=== PATIENT | female | born 1980 | race Caucasian/White ===

== ENCOUNTER 2024-03-18 19:39 | Emergency (ER) | payer MEDICAID, SELFPAY ==
[2024-03-18 19:43] VITALS: BP 118/72; PULSE 132; RESP 18; TEMP 36.8; O2SAT 94; BMI 22.3
--- NOTE | 2024-03-18 20:00 | XRR_ITS ---
PROCEDURE INFORMATION: Exam: XR Chest Exam date and time: 03/18/2024 8:54 PM Age: 43 years old Clinical indication: Shortness of breath; Additional info: Hypotension tachycardia TECHNIQUE: Imaging protocol: Radiologic exam of the chest. Views: 1 view. COMPARISON: No relevant prior studies available. FINDINGS: Lungs: Right basilar opacities. The left lung is clear. Pleural spaces: Moderate right-sided pleural effusion. Heart/Mediastinum: Unremarkable. No cardiomegaly. Bones/joints: Unremarkable. XR/XR chest 1V portable [id number] IMPRESSION: Moderate right-sided pleural effusion. Right basilar opacities likely represent atelectasis, though superimposed infection is not excluded.
--- NOTE | 2024-03-18 20:00 | ECG_ITS ---
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 Measurements Intervals [place] Rate: 130 P: 59 VT: 124 QRS: 84 QRSD: 87 T: -59 QT: 286 QTc: 422 Interpretive Statements SINUS TACHYCARDIA ST DEVIATION AND MODERATE T-WAVE ABNORMALITY, CONSIDER INFERIOR ISCHEMIA [-0.1+ mV T-WAVE IN II/aVF] No previous ECG available for comparison Electronically Signed On 03-19-2024 23:36:26 CDT by Miguel Juarez M.D. [email or web address] medical groupTB Biosciencesfair[facility].Vgift/store/NU/[id number] f
--- NOTE | 2024-03-18 20:01 | W.ED.DIZZY ---
HPI - Dizziness General: Chief Complaint: Dizziness Stated Complaint: Low BP Time Seen by Provider: 03/18/24 19:50 History of Present Illness: HPI Narrative: on midodrine keppra and lipitor rxs by Corin Whittington and Gloria Vaughn both [facility] Patient presents to the with complaints of low blood pressure all day long and dizziness. Patient says she has had chest pains off and on for last few days. And diarrhea all day today. She has when her blood pressure gets low it feels like she was going to pass out she has a ringing in her years. Patient did have a stroke a couple months ago and she has a little bit of gait disturbance and dysarthria still from it. Patient reports her blood pressure at home was 86/60 and 90/70. Patient is alert oriented x 3 and not having any chest pain or shortness of breath at this time. Patient denies any nausea vomiting coughs colds fevers chills pain burning frequent patient says she does take a medicine to takes it 3 times a day but it does not seem to be working. Related Data Previous Rx's Medication Instructions Recorded ciprofloxacin HCl 500 mg tablet 500 mg PO Q12H #20 tabs 03/18/24 Allergies Allergy/AdvReac Type Severity Reaction Status Date / Time No Known Allergies Allergy Verified 03/18/24 19:52 Review of Systems General: Reports: 10 or more systems reviewed and unremarkable except in HPI and below Physical Exam Const: COMMON NORMALS: no acute distress, average body habitus, patient oriented x3, no limitations, healthy appearing, alert and well nourished HENMT: COMMON NORMALS: normocephalic, atraumatic, hearing grossly normal bilaterally, external ears normal, Normal external nose present and moist oral mucous membranes HEAD & SCALP: normocephalic and atraumatic NOSE: Normal external nose present EXTERNAL EAR: Yes external ears normal Eye: COMMON NORMALS: Equal, round and reactive pupils present, EOMs intact bilaterally, conjunctivae normal and no scleral icterus CONJUNCTIVA: Yes conjunctivae normal PUPIL: Yes Equal, round and reactive pupils present Neck/C-Spine: COMMON NORMALS: full ROM, no lymphadenopathy, supple, no meningeal signs, no JVD and Thyroid normal THYROID: Thyroid normal Chest: COMMONS NORMALS: normal inspection of the chest and normal palpation of entire chest wall Resp: COMMON NORMALS: normal respiratory effort, No retractions and No use of accessory muscles; negative for clear to auscultation bilaterally (Clear to auscultation bilaterally, decreased breath sounds right lower lobe) AUSCULTATION: not clear to auscultation bilaterally (Clear to auscultation bilaterally, decreased breath sounds right lower lobe) Cardio: COMMON NORMALS: no JVD, regular rate, regular rhythm, S1 normal heart sound present, S2 normal heart sound present, No gallops present (Cardio), No clicks present (Cardio), No murmurs present (Cardio) and No rub (Cardio) RATE: regular rate RHYTHM: regular rhythm HEART SOUNDS: S1 normal heart sound present and S2 normal heart sound present GI: COMMON NORMALS: Normal to inspection, nondistended, normoactive bowel sounds present, Soft to palpation, non-tender, No hepatosplenomegaly present and no masses PALPATION: Yes Soft to palpation and Yes No hepatosplenomegaly present Neuro: COMMON NORMALS: patient oriented x3 SENSORIUM/ORIENTATION: Yes alert MENINGEAL SIGNS: Yes no meningeal signs Course Vital Signs: Vital signs: Vital Signs Temperature 98.2 F 03/18/24 19:43 Pulse Rate 122 H 03/18/24 22:30 Respiratory Rate 20 H 03/18/24 22:30 Blood Pressure 125/88 03/18/24 22:30 Pulse Oximetry 97 03/18/24 22:30 Oxygen Delivery Me thod Room Air 03/18/24 21:22 MDM - Dizziness Medical Decision Making Lab work was obtained which showed urinary tract infection, chest x-ray showed moderate right-sided pleural effusion, chest CTA showed right perihilar mass as well as multiple opacities concerning for metastasis. These results was discussed with the patient patient be placed on antibiotics and referred to pulmonology for probable biopsy. Medical Records I reviewed the patient's medical records. Lab Data I reviewed the patient's lab results. 03/18/24 20:20 03/18/24 20:20 Radiology Impressions Chest X-Ray 03/18/24 20:00 IMPRESSION: Moderate right-sided pleural effusion. Right basilar opacities likely represent atelectasis, though superimposed infection is not excluded. Chest CTA 03/18/24 21:57 IMPRESSION: 1. Right hilar/perihilar soft tissue mass appears to obstruct several right middle and right lower lobe bronchi, resulting in partial collapse/consolidation of the right lower lobe and a small area of consolidation in the right middle lobe. This mass also encases several right middle and right lower lobe pulmonary arteries and abuts portions of the esophagus as well as the right pulmonary artery. Findings are concerning for neoplasm. This could be further assessed with PET-CT. 2. Multiple nodular opacities within the aerated portion of the right lower lobe are concerning for metastases in the setting of possible right hilar neoplasm. However, underlying infection is also possible. Correlate with clinical findings. This could be further assessed at time of PET-CT. Alternatively, a follow-up CT chest is recommended after clinical treatment to evaluate for improvement. 3. Moderate right-sided pleural effusion. Laboratory Results WBC 9.04 10^3/uL (3.29-11.43) 03/18/24 20:20 RBC 4.68 10^6/uL (3.85-5.65) 03/18/24 20:20 Hgb 14.00 g/dL (11.27-16.99) 03/18/24 20:20 Hct 44.1 % (36-47) 03/18/24 20:20 MCV 94.2 fl (85-98) 03/18/24 20:20 MCH 29.9 pg (27-33) 03/18/24 20:20 MCHC 31.7 g/dL (30-55) 03/18/24 20:20 RDW 11.9 % (12.1-15.1) L 03/18/24 20:20 Plt Count 432 10^3/cmm (157-399) H 03/18/24 20:20 MPV 10.2 fL (7.4-10.4) 03/18/24 20:20 Neut % (Auto) 62.7 % 03/18/24 20:20 Lymph % (Auto) 26.1 % 03/18/24 20:20 [place] % (Auto) 6.4 % 03/18/24 20:20 Eos % (Auto) 3.7 % 03/18/24 20:20 Baso % (Auto) 0.8 % 03/18/24 20:20 Neut # (Auto) 5.67 10^3/uL (1.8-7.7) 03/18/24 20:20 Lymph # (Auto) 2.4 10^3/uL (0.8-4.8) 03/18/24 20:20 [place] # (Auto) 0.6 10^3/uL (0.2-0.9) 03/18/24 20:20 Eos # (Auto) 0.3 10^3/uL (0.0-0.8) 03/18/24 20:20 Baso # (Auto) 0.1 10^3/uL (0.0-0.1) 03/18/24 20:20 Nucleated RBC % (auto) 0 % 03/18/24 20:20 Nucleated RBCs # 0.0 /100WBC 03/18/24 20:20 Sodium 142 mmol/L (136-145) 03/18/24 20:20 Potassium 4.0 mmol/L (3.5-5.1) 03/18/24 20:20 Chloride 103 mmol/L (98-107) 03/18/24 20:20 Carbon Dioxide 24 mmol/L (22-29) 03/18/24 20:20 Anion Gap 19.0 (5-19) 03/18/24 20:20 BUN 15 mg/dL (6-20) 03/18/24 20:20 Creatinine 0.6 mg/dL (0.5-0.9) 03/18/24 20:20 GFR Calculation 108.1 mL/min (90-130) 03/18/24 20:20 Glucose 122 mg/dL (65-115) H 03/18/24 20:20 Calculated Osmolality 296 mOsm/kg (285-295) H 03/18/24 20:20 Lactic Acid 1.1 mmol/L (0.5-2.2) 03/18/24 20:20 Calcium 9.0 mg/dL (8.5-10.5) 03/18/24 20:20 Total Bilirubin 0.2 mg/dL (0.15-1.2) 03/18/24 20:20 AST 11 U/L (0-32) 03/18/24 20:20 ALT 8 U/L (0-33) 03/18/24 20:20 Alkaline Phosphatase 147 U/L (35-105) H 03/18/24 20:20 Troponin T Baseline 7 ng/L (0-10) 03/18/24 20:20 Troponin T 120 Minute 6.00 ng/L (0-10) 03/18/24 22:06 Delta Troponin T -1.00 ABS# (0-10) L 03/18/24 22:06 Total Protein 7.2 g/dL (6.6-8.7) 03/18/24 20:20 Albumin 3.9 g/dL (3.5-5.2) 03/18/24 20:20 Globulin 3.3 g/dL (1.3-4.6) 03/18/24 20:20 Procalcitonin 0.12 ng/mL (0-0.5) 03/18/24 20:20 HCG, Qual Negative (Negative) 03/18/24 21:10 Urine Color Yellow (Yellow) 03/18/24 21:10 Urine Appearance Cloudy (CLEAR) A 03/18/24 21:10 Urine pH 5.5 (5-7) 03/18/24 21:10 Ur Specific [place]ove 1.030 (1.005-1.030) 03/18/24 21:10 Urine Protein 1+ (Negative) A 03/18/24 21:10 Urine Glucose (UA) Negative (Normal) 03/18/24 21:10 Urine Ketones Negative (Negative) 03/18/24 21:10 Urine Blood 3+ (Negative) A 03/18/24 21:10 Urine Nitrate Positive (Negative) A 03/18/24 21:10 Urine Bilirubin Negative (Negative) 03/18/24 21:10 Urine Urobilinogen 1.0 mg/dL (Negative) 03/18/24 21:10 Ur Leukocyte Esterase 2+ (Negative) A 03/18/24 21:10 Urine RBC 11-20 /hpf (0-2) H 03/18/24 21:10 Urine WBC 25-40 /hpf (0-5) H 03/18/24 21:10 Ur Squamous Epith Cells 11-20 /hpf (0-5) 03/18/24 21:10 Amorphous Sediment Not Reportable 03/18/24 21:10 Urine Bacteria 4+ /hpf (NONE) H 03/18/24 21:10 Urine Mucus 2+ /hpf 03/18/24 21:10 Urine Opiates Screen Negative ng/mL (Negative) 03/18/24 21:10 Ur Barbiturates Screen Negative ng/mL (Negative) 10/01/24 21:10 Ur Phencyclidine Scrn Negative ng/mL (Negative) 03/18/24 21:10 Ur Amphetamines Screen Negative ng/mL (Negative) 03/18/24 21:10 U Benzodiazepines Scrn Negative ng/mL (Negative) 03/18/24 21:10 Urine Cocaine Screen Negative ng/mL (Negative) 03/18/24 21:10 U Marijuana (THC) Screen Positive ng/mL (Negative) H 03/18/24 21:10 All radiology interpretation(s) finalized by discharge Discharge Plan Discharge Patient Disposition: Home Clinical Impression: Pleural effusion, Mass of middle lobe of right lung Urinary tract infection Qualifiers: Urinary tract infection type: acute cystitis Hematuria presence: with hematuria Qualified Code(s): N30.01 - Acute cystitis with hematuria Condition: Stable Prescriptions: New ciprofloxacin HCl 500 mg tablet 500 mg PO Q12H Qty: 20 0RF Discharge Orders: Discharge ED (Routine); Ordered 03/18/24 Ordered By: Hernandez Maria Referrals: Antonella Combs DO [Primary Care Provider] - 1 week Patient Instructions: Pleural Effusion (DC), Urinary Tract Infection - Women Activity Restrictions/Additional Instructions: Your evaluation in ER showed you have a pleural effusion or extra fluid in your lung, a probable lung mass in your right lung causing this fluid buildup, and a urinary tract infection. He had been referred to pulmonology for further evaluation of this lung mass, case management should be calling you in the morning this appointment. Antibiotics have been sent to your pharmacy please get them filled and take them as directed for your urinary tract infection. Thank you for choosing [facility] for your healthcare needs today. Please realize that you were seen in the emergency department and that we are providing you with an emergency medical screening exam and this may not be a complete and all exclusive of all testing and/or medical workup we may need to determine your element or severity of your illness. It is very important that you follow-up as instructed with your primary care provider or specialist for the additional evaluation and to discuss your medical treatment plan. You may return to the emergency department should you have concerns or if your condition changes or worsens in any way. Coding Level of Care Code ED Supervisor Machine Setter for John aBrrios
[2024-03-18 20:28] LABS: Basophils # 0.1 10^3/uL (0.0-0.1); Basophils % 0.8 %; Eosinophils # 0.3 10^3/uL (0.0-0.8); Eosinophils % 3.7 %; Hematocrit 44.1 % (36-47); Lymphocytes # 2.4 10^3/uL (0.8-4.8); Lymphocytes % 26.1 %; Mean Corpuscular HGB Conc 31.7 g/dL (30-55); Mean Corpuscular Hemoglobin 29.9 pg (27-33); Mean Corpuscular Volume 94.2 fl (85-98); Mean Platelet Volume 10.2 fL (7.4-10.4); Monocytes # 0.6 10^3/uL (0.2-0.9); Monocytes % 6.4 %; Neutrophils # 5.67 10^3/uL (1.8-7.7); Neutrophils % 62.7 %; Nucleated Red Blood Cells % 0 %; Platelet Count 432 10^3/cmm (157-399); Red Blood Count 4.68 10^6/uL (3.85-5.65); Red Cell Distribution Width 11.9 % (12.1-15.1); White Blood Count 9.04 10^3/uL (3.29-11.43)
[2024-03-18 20:48] VITALS: BP 103/82; PULSE 120; O2SAT 94
[2024-03-18 20:52] LABS: Troponin(5th) Baseline 7 ng/L (0-10)
[2024-03-18 20:57] LABS: Alanine Aminotransferase 8 U/L (0-33); Albumin Level 3.9 g/dL (3.5-5.2); Alkaline Phosphatase 147 U/L (35-105); Aspartate Amino Transferase 11 U/L (0-32); Blood Urea Nitrogen 15 mg/dL (6-20); Carbon Dioxide 24 mmol/L (22-29); Chloride 103 mmol/L (98-107); Creatinine Clr Calc Pharmacy 105.4363; Globulin 3.3 g/dL (1.3-4.6); Glomerular Filtration Rate 108.1 mL/min (90-130); Glucose 122 mg/dL (65-115); Osmolality Calculated 296 mOsm/kg (285-295); Sodium 142 mmol/L (136-145); Total Bilirubin 0.2 mg/dL (0.15-1.2); Total Protein 7.2 g/dL (6.6-8.7)
[2024-03-18] MEDS: sodium chloride 0.9% 1,000 ML 999 ML IV (20:58)
[2024-03-18 21:16] LABS: Bilirubin Urine Negative (Negative); Blood Urine 3+ (Negative); Glucose Urine UA Negative (Normal); HCG Qualitative Urine. Negative (Negative); Ketones Urine Negative (Negative); Leukocyte Esterase Urine 2+ (Negative); Nitrate Urine Positive (Negative); Protein Urine 1+ (Negative); Urine Appearance Cloudy (CLEAR); Urine Color Yellow (Yellow); pH Urine 5.5 (5-7)
[2024-03-18 21:22] VITALS: BP 117/93; PULSE 111; O2SAT 97
[2024-03-18 21:23] LABS: Amphetamines Screen Urine Negative (Negative); Barbiturates Screen Urine Negative (Negative); Benzodiazepines Screen Urine Negative (Negative); Cocaine Screen Urine Negative (Negative); Opiate Screen Urine Negative (Negative); PCP Screen Urine Negative (Negative); THC Screen Urine Positive (Negative)
[2024-03-18 21:26] LABS: Add Urine Culture? No; Add Urine Microscopic? YES; Bacteria Urine 4+ /hpf; Mucus Urine 2+ /hpf; UA Manual Slide Review YES; UA Slide Review UA Slide Review Perf; WBC Urine 25-40 /hpf (0-5)
[2024-03-18] MEDS: ciprofloxacin 500 mg Tablet PO (21:41)
--- NOTE | 2024-03-18 21:57 | CTR_ITS ---
PROCEDURE INFORMATION: Exam: CTA Chest With Contrast Exam date and time: 03/18/2024 10:04 PM Age: 43 years old Clinical indication: Dyspnea and shortness of breath; Additional info: R pleural effusion, hypotension, tachycardia, TECHNIQUE: Imaging protocol: Computed tomographic angiography of the chest with contrast. Exam focused on the arteries. 3D rendering (Not supervised by radiologist): MIP and/or 3D reconstructed images were created by the technologist. Radiation optimization: All CT scans at this facility use at least one of these dose optimization techniques: automated exposure control; mA and/or kV adjustment per patient size (includes targeted exams where dose is matched to clinical indication); or iterative reconstruction. Contrast material: OMNI 350; Contrast volume: 75 ml; Contrast route: INTRAVENOUS (IV); COMPARISON: CR (CHEST, ) 03/18/2024 8:54 PM RADIATION DOSE METRICS: Total DLP (mGy-cm): 188.55 FINDINGS: Pulmonary arteries: Normal. No pulmonary emboli. Aorta: Unremarkable. No aortic aneurysm. No aortic dissection. Lungs: Small mucous secretions within the right mainstem bronchus. Opacification of several right middle and large lower lobe bronchi secondary to a right hilar/perihilar mass. Partial collapse/consolidation of the right lower lobe. Small area of opacification of the right middle lobe. Multiple consolidative and ground-glass opacities as well as nodular opacities are seen in the right lower lobe. The largest nodule measures up to 1.5 cm (series 4, image 24). Pleural spaces: Moderate right-sided pleural effusion. Heart: Unremarkable. No cardiomegaly. No pericardial effusion. Lymph nodes: Right hilar/perihilar soft tissue density measures approximately 5.3 x 6.7 x 5.7 cm and encases several right middle and right lower lobe pulmonary arteries and bronchi. Portions of the mass also abut the esophagus in the right pulmonary artery. Bones/joints: Unremarkable. No acute fracture. Soft tissues: Unremarkable. CT/CT angio chest PE protcl 19703 IMPRESSION: 1. Right hilar/perihilar soft tissue mass appears to obstruct several right middle and right lower lobe bronchi, resulting in partial collapse/consolidation of the right lower lobe and a small area of consolidation in the right middle lobe. This mass also encases several right middle and right lower lobe pulmonary arteries and abuts portions of the esophagus as well as the right pulmonary artery. Findings are concerning for neoplasm. This could be further assessed with PET-CT. 2. Multiple nodular opacities within the aerated portion of the right lower lobe are concerning for metastases in the setting of possible right hilar neoplasm. However, underlying infection is also possible. Correlate with clinical findings. This could be further assessed at time of PET-CT. Alternatively, a follow-up CT chest is recommended after clinical treatment to evaluate for improvement. 3. Moderate right-sided pleural effusion.
--- NOTE | 2024-03-18 22:00 | ECG_ITS ---
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 Measurements Intervals [place] Rate: 112 P: 42 OR: 144 QRS: 76 QRSD: 89 T: -21 QT: 314 QTc: 430 Interpretive Statements SINUS TACHYCARDIA NONSPECIFIC T-WAVE ABNORMALITY No previous ECG available for comparison Electronically Signed On 03-19-2024 23:44:13 CDT by Miguel Juarez M.D. [email or web address] [facility] hospitalChroma [facility].[employer]/store/OM/[id number]
[2024-03-18] MEDS: iohexol 350 mg/mL 500 mL Btl (per mL) IV (22:22)
[2024-03-18 22:30] VITALS: BP 125/88; PULSE 122; RESP 20; O2SAT 97
[2024-03-18 22:30] LABS: Lactic Sepsis W/Reflex 1.1 mmol/L (0.5-2.2)
[2024-03-18 22:36] LABS: Procalcitonin 0.12 ng/mL (0-0.5)
[2024-03-18 23:35] VITALS: BP 119/84; PULSE 114; RESP 20; O2SAT 97
--- NOTE | 2024-03-20 08:20 | DCPLANNER ---
faxed packet to kristin banegas
== END 2024-03-18 23:43 | disposition home or self-care (01) ==
PROVIDERS: Emergency Provider Emergency Medicine; PCP Family Medicine
DX: J90 Pleural effusion, not elsewhere classified (principal); N30.01 Acute cystitis with hematuria; R91.8 Other nonspecific abnormal finding of lung field; I95.9 Hypotension, unspecified; Z79.899 Other long term (current) drug therapy; I69.322 Dysarthria following cerebral infarction; I69.398 Other sequelae of cerebral infarction; R26.89 Other abnormalities of gait and mobility
CPT/HCPCS: 36415; 71045; 71275; 80053; 80306; 81001; 81025; 83605; 84145; 84484; 85025; 93005; 96360; 96361; 99285; J7030

== ENCOUNTER 2024-04-30 07:59 | Day surgery (SDC) | payer MEDICAID, SELFPAY ==
[2024-04-30] VITALS (8 sets, daily range): BP systolic 89–108; BP diastolic 65–76; PULSE 107–133; RESP 8–20; TEMP 36.1–37; O2SAT 90–94; BMI 22.4
--- NOTE | 2024-04-30 08:08 | SC_ITS ---
WS: [id number] C ARM fluoroscopy for infusion port placement, 04/30/2024 Clinical Data: port placement Comparison: Portable chest, 03/18/2024 Findings: Dr. Colmenares inserted a right infusion port. SC/C-arm FL for CVA 18570 Impression: Insertion of right infusion catheter.
[2024-04-30] MEDS: sodium chloride 0.9% 1,000 ML 30 ML IV (08:40)
--- NOTE | 2024-04-30 08:59 | P.ANESASSM_ITS ---
Pre-Anesthetic Assessment Height/Weight: Height 5 ft 4 in Weight 131 lb Temp Pulse Resp BP Pulse Ox O2 Del Method 98.6 F 133 H 20 H 100/72 91 Room Air 04/30/24 08:10 04/30/24 08:10 04/30/24 08:10 04/30/24 08:10 04/30/24 08:10 04/30/24 08:10 Preop Diagnosis: Lung cancer Operation Date: 04/30/24 09:50 Proposed Procedures p Portacath Placement - 74284, C34.31(Not Applicable) - Neal Thomas MD Was Beta Nataliia taken within 24 hours: N/A Last intake: Intake Last Liquid Date 04/29/24 Last Liquid Time 19:00 Last Solid Date 04/29/24 Last Solid Time 19:00 Social Tobacco and No tobacco Still occasional smokes, previous heavy smoker Exam alert, oriented x 3 and regular rate & rhythm Decreased breath sounds bilaterally Airway Submandibular: within normal limits Cervical ROM: within normal limits Mallampati: Class III Dentition: full Comments: Comments: Denies any loose teeth Anesthetic Plan ASA status: 4 Anesthesia: MAC Other: No prior issues with anesthesia NPO since yesterday 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 Mass in cases the pulmonary arteries. Has been deemed inoperable Patient has had recurrent CVAs. Most recent in October 2023 with residual weakness on the right side. Only takes daily aspirin Chronic hypotension, BP 100/72 today. Patient currently tachycardic with heart rate 120s No home oxygen use, SpO2 89-90% preop Still occasionally smokes Labs reviewed acceptable for procedure Plan for MAC anesthetic Medications/Allergies Home Medications Medication Instructions Recorded Confirmed Last Taken Type atorvastatin 20 mg tablet 20 mg PO DAILY 04/22/24 04/30/24 04/29/24 History hydrocodone 7.5 mg-acetaminophen 1 tab PO Q6H PRN pain 30 days #60 04/22/24 04/30/24 04/29/24 Rx 325 mg tablet tabs levetiracetam 500 mg tablet 500 mg PO DAILY 04/22/24 04/30/24 2 Weeks Ago Hi story ~04/16/24 midodrine 2.5 mg tablet 2.5 mg PO DAILY 04/22/24 04/30/24 04/29/24 History ondansetron 8 mg disintegrating 8 mg PO DAILY 04/22/24 04/30/24 2 Weeks Ago History tablet ~04/16/24 aspirin 81 mg tablet,delayed 81 mg PO DAILY 04/24/24 04/30/24 04/29/24 History release prochlorperazine maleate 10 mg 10 mg PO Q4H PRN mild nausea #30 04/28/24 04/30/24 2 Weeks Ago Rx tablet (Compazine) tabs ~04/16/24 Allergies Allergy/AdvReac Type Severity Reaction Status Date / Time No Known Allergies Allergy Verified 04/30/24 08:15 [facility] Anesthesia Social History (Updated 04/24/24 @ 08:15 by ELIDIA Machado) Smoking and tobacco/nicotine status: former use of tobacco/nicotine Alcohol intake: never Data Anesthesia Cardiac Studies: No Data to Display
--- NOTE | 2024-04-30 10:11 | W.PM.OPSFHP ---
Same Day Surgery H&P Indication for Procedure/HPI DATE OF PROCEDURE: April 30, 2024 CHIEF COMPLAINT/INDICATIONFOR SURGICAL PROCEDURE: port placement PREOP DIAGNOSIS: Lung cancer PLANNED PROCEDURE: Operation Date: 04/30/24 09:50 Proposed Procedures p Portacath Placement - 70894, C34.31(Not Applicable) - Neal Thomas MD Medications/Allergies* Home Medications Medication Instructions Recorded Confirmed Type atorvastatin 20 mg tablet 20 mg PO DAILY 04/22/24 04/30/24 History levetiracetam 500 mg tablet 500 mg PO DAILY 04/22/24 04/30/24 History midodrine 2.5 mg tablet 2.5 mg PO DAILY 04/22/24 04/30/24 History ondansetron 8 mg disintegrating 8 mg PO DAILY 04/22/24 04/30/24 History tablet aspirin 81 mg tablet,delayed 81 mg PO DAILY 04/24/24 04/30/24 History release Allergies/Adverse Reactions Allergy/AdvReac Type Severity Reaction Status Date / Time No Known Allergies Allergy Verified 04/30/24 08:15 Current Medications: Generic Name Dose Route Start Last Admin Trade Name Freq PRN Reason Stop Dose Admin Sodium Chloride 1,000 mls @ 30 mls/hr 04/30/24 08:15 04/30/24 08:40 Sodium Chloride 0.9% IV 05/01/24 08:14 30 mls/hr .Q24H SUSI Administration Pertinent History/Comorbid Conditions* Social History Smoking and tobacco/nicotine status: former use of tobacco/nicotine Alcohol intake: never Pertinent Exam Findings alert, oriented x 3, clear to auscultation bilaterally, regular rate & rhythm and procedure specific exam findings Chest without any gross abnormalities. Recommendations Surgery/Procedure today Other Plans: Proceed with port placement Coding Level of Care Code Acute Code for Chg Fwd
[2024-04-30] MEDS: ceFAZolin 2,000 mg SDV 2000 MG IVP (10:17)
[2024-04-30] MEDS: lidocaine-epi 1% 20 mL INJ 10 ML INJECTION (10:41)
[2024-04-30] MEDS: BUPivacaine 0.25% INJ 10 mL INJECTION (10:41)
[2024-04-30] MEDS: heparin, porcine 1,000 unit/mL INJ 10 mL 6000 UNIT IRRIGATION (10:42)
--- NOTE | 2024-04-30 11:17 | P.OP_ITS ---
Operative Report Date of procedure: April 30, 2024 Pre-op diagnosis: Lung cancer Post-op diagnosis: same Post-op findings: Port placement right IJ. Tip of catheter at atriocaval junction confirmed by intraoperative fluoroscopy Procedure done: Port placement Implants: Portacath Specimens removed/disposition: NA Pathology: none sent Surgeon: Neal Thoams MD Trade Union Secretary: JC Anesthesia: MAC Estimated blood loss (mL): 10 Complications: NA Findings: Confirmed tip of catheter is located at atriocaval junction using intraoperative fluoroscopy. Tested port intraoperatively and it is fully functional. Condition: stable Disposition: same day Brief History: 43-year-old female who presented for port placement. Needs chemotherapy for lung cancer. Discussed risks and benefits and patient agreed to proceed with port placement. Procedure: Patient was brought into the operating room and a timeout was carried out. Procedure was done under MAC. Patient was placed supine with the arms tucked and in Trendelenburg. Patient was prepped and draped in the usual sterile fashion. Using ultrasound guidance the right internal jugular vein was accessed. A guidewire was then placed down to the atriocaval junction using fluoroscopy. The finder needle was removed and the guidewire was secured. I then turned my attention to creating a pocket over the right chest. Make sure to locally infiltrated using plain lidocaine and bupivacaine at the site of the pocket and throughout the tunnel site. I confirmed adequate hemostasis at the pocket. I then proceeded to place the port that was already preassembled and flushed with heparinized saline and the chest pocket. I tunneled the catheter from the chest to the neck at the site where I accessed the internal jugular vein. I measured and adjusted the length of the catheter so it would reach the atrial caval junction. At this point, I used a dilator to dilate the tract into the internal jugular vein using fluoroscopy. I removed the guidewire and proceeded to thread the central venous catheter through the introducer. In the process, I removed the sheath as a completely pushed the catheter into the internal jugular vein. I then confirmed adequate placement of the catheter by performing intraoperative interpretation of fluoroscopy. The tip of the catheter was confirmed to be placed in the atriocaval junction. There were no kinks noted throughout the trajectory of the catheter. I then proceeded to test the port and was satisfied with its functionality. I proceeded to flushed the catheter without any issues. I then hep-locked the port. Skin was closed using deep dermal 3-0 Vicryl, subcuticular 4-0 Monocryl, and Dermabond. Patient was then transferred to PACU without any complications.
--- NOTE | 2024-04-30 12:06 | ANE.PACU2 ---
Inpatient post-anesthesia follow up: Airway intact: Yes Vital signs: Temperature 97.7 F Pulse Rate 108 Respiratory Rate 18 Blood Pressure 108/76 Pulse Oximetry 94 Oxygen Delivery Me thod Room Air Oxygen Flow Rate Fraction of Inspir ed Oxygen Hydration adequate: Yes Nausea and vomiting: No Pain level: 1 Mental status: Baseline
[2024-04-30 13:25] LABS: OR HCG Qualitative Urine Negative (Negative)
== END 2024-04-30 12:06 | disposition home or self-care (01) ==
PROVIDERS: Student in an Organized Health Care Education/Training Program; PCP Family Medicine; Visit Provider Student in an Organized Health Care Education/Training Program
PROC: (CPT 36561; principal; 2024-04-30 09:40)
DX: C34.90 Malignant neoplasm of unspecified part of unspecified bronchus or lung (principal); Z87.891 Personal history of nicotine dependence; Z79.82 Long term (current) use of aspirin
CPT/HCPCS: 36561; 76000; 77001; 81025; C1788; J0690; J1644; J2250; J2704; J3010; J3490; J7030

== ENCOUNTER 2024-05-05 07:30 | Oncology outpatient (recurring) (ONCR) | payer MEDICAID, SELFPAY ==
[2024-04-22 10:24] LABS: Basophils % 0.5 %; Eosinophils # 0.1 10^3/uL (0.0-0.8); Eosinophils % 1.3 %; Hematocrit 42.3 % (36-47); Lymphocytes # 1.7 10^3/uL (0.8-4.8); Lymphocytes % 21.7 %; Mean Corpuscular HGB Conc 30.3 g/dL (30-55); Mean Corpuscular Hemoglobin 28.9 pg (27-33); Mean Corpuscular Volume 95.5 fl (85-98); Mean Platelet Volume 10.9 fL (7.4-10.4); Monocytes # 0.3 10^3/uL (0.2-0.9); Monocytes % 4.4 %; Nucleated Red Blood Cells % 0 %; Platelet Count 301 10^3/cmm (157-399); Red Blood Count 4.43 10^6/uL (3.85-5.65); White Blood Count 7.65 10^3/uL (3.29-11.43)
[2024-04-22 10:42] LABS: Carcinoembryonic Antigen 2.9 ng/mL (0.0-4.7)
[2024-04-22 10:54] LABS: Alanine Aminotransferase 9 U/L (0-33); Albumin Level 3.7 g/dL (3.5-5.2); Alkaline Phosphatase 132 U/L (35-105); Anion Gap 15.8 (5-19); Aspartate Amino Transferase 19 U/L (0-32); Blood Urea Nitrogen 10 mg/dL (6-20); Calcium 8.8 mg/dL (8.5-10.5); Carbon Dioxide 26 mmol/L (22-29); Chloride 102 mmol/L (98-107); Creatinine Clr Calc Pharmacy 126.5236; Globulin 3.1 g/dL (1.3-4.6); Glomerular Filtration Rate 133.4 mL/min (90-130); Glucose 152 mg/dL (65-115); Lactate Dehydrogenase 122 U/L (135-214); Magnesium 1.8 mg/dL (1.7-2.3); Osmolality Calculated 292 mOsm/kg (285-295); Potassium 3.8 mmol/L (3.5-5.1); Sodium 140 mmol/L (136-145); Total Bilirubin 0.4 mg/dL (0.15-1.2); Total Protein 6.8 g/dL (6.6-8.7)
[2024-05-05 07:46] LABS: Basophils % 0.4 %; Eosinophils # 0.1 10^3/uL (0.0-0.8); Eosinophils % 0.9 %; Hematocrit 47.9 % (36-47); Lymphocytes # 2.1 10^3/uL (0.8-4.8); Lymphocytes % 23.3 %; Mean Corpuscular HGB Conc 27.3 g/dL (30-55); Mean Corpuscular Hemoglobin 30.4 pg (27-33); Mean Corpuscular Volume 111.1 fl (85-98); Mean Platelet Volume 10.8 fL (7.4-10.4); Monocytes # 0.6 10^3/uL (0.2-0.9); Monocytes % 6.3 %; Neutrophils # 6.25 10^3/uL (1.8-7.7); Neutrophils % 68.9 %; Nucleated Red Blood Cells % 0 %; Platelet Count 221 10^3/cmm (157-399); Red Blood Count 4.31 10^6/uL (3.85-5.65); Red Cell Distribution Width 13.8 % (12.1-15.1); White Blood Count 9.08 10^3/uL (3.29-11.43)
[2024-05-05 08:15] LABS: Alanine Aminotransferase 26 U/L (0-33); Albumin Level 3.8 g/dL (3.5-5.2); Alkaline Phosphatase 232 U/L (35-105); Anion Gap 16.9 (5-19); Aspartate Amino Transferase 36 U/L (0-32); Blood Urea Nitrogen 16 mg/dL (6-20); Calcium 9.4 mg/dL (8.5-10.5); Carbon Dioxide 27 mmol/L (22-29); Chloride 98 mmol/L (98-107); Creatinine Clr Calc Pharmacy 104.4187; Globulin 3.6 g/dL (1.3-4.6); Glomerular Filtration Rate 108.1 mL/min (90-130); Glucose 134 mg/dL (65-115); Osmolality Calculated 289 mOsm/kg (285-295); Potassium 3.9 mmol/L (3.5-5.1); Sodium 138 mmol/L (136-145); Thyroid Stimulating Hormone 1.61 uIU/mL (0.27-4.20); Total Bilirubin 0.6 mg/dL (0.15-1.2); Total Protein 7.4 g/dL (6.6-8.7)
[2024-05-05 08:42] LABS: Hepatitis A Antibody IgM Non-Reactive (Nonreactive); Hepatitis B Core AB, Total Non-Reactive (Nonreactive); Hepatitis B Surface AB < 3.5 (11.5-1000); Hepatitis B Surface Antigen Non-Reactive (Nonreactive); Hepatitis C Virus Antibody Non-Reactive (Nonreactive)
[2024-05-05] MEDS: sodium chloride 0.9% 250 ML 75 ML IV (11:47)
[2024-05-05] MEDS: OLANZapine 5 mg TABLET PO (11:48)
[2024-05-05] MEDS: acetaminophen 325 mg Tablet 650 MG PO (11:49)
[2024-05-05] MEDS: ondansetron 2 mg/ML SDV 2 mL 8 MG IVP (11:52)
[2024-05-05] MEDS: famotidine 20 mg/2 mL INJ IVP (11:55)
[2024-05-05] MEDS: diphenhydrAMINE 50 mg/mL SDV 1mL 25 MG IVP (11:59)
[2024-05-05] MEDS: aprepitant 130 mg/18 ml SDV IVP (12:03)
[2024-05-05] MEDS: dexamethasone 4 mg/mL INJ 5 mL 12 MG IV (12:07)
[2024-05-05] MEDS: atezolizumab 1,200 MG in sodium chloride 0.9% 250 ML 300 MG IV (13:18)
[2024-05-05] MEDS: CARBOPLATIN IV (14:32)
[2024-05-05] MEDS: SODIUM CHLORIDE 0.9% IV (14:32)
[2024-05-05] MEDS: [UNRECOGNIZED DRUG - REMARK] 508 MG IV (15:39)
[2024-05-05 16:56] VITALS: BP 101/67; PULSE 119; RESP 16; TEMP 36.7; O2SAT 90
== END 2024-05-05 23:59 | disposition home or self-care (01) ==
PROVIDERS: Nurse Practitioner Family; PCP Family Medicine; Visit Provider Internal Medicine Hematology & Oncology
DX: Z53.9 Procedure and treatment not carried out, unspecified reason (principal); Z51.12 Encounter for antineoplastic immunotherapy; Z51.11 Encounter for antineoplastic chemotherapy; C7A.8 Other malignant neuroendocrine tumors; C34.31 Malignant neoplasm of lower lobe, right bronchus or lung; Z79.52 Long term (current) use of systemic steroids; Z79.899 Other long term (current) drug therapy
CPT/HCPCS: 36415; 80053; 82378; 83615; 83735; 84443; 85025; 86705; 86706; 86709; 86803; 87340; 96375; 96413; 96417; J0185; J1100; J1200; J2405; J3490; J7030; J7040; J7050; J9022; J9045; J9181

== ENCOUNTER 2024-05-13 09:08 | Oncology outpatient (recurring) (ONCR) | payer MEDICAID, SELFPAY ==
[2024-05-06] MEDS: sodium chloride 0.9% 250 ML 75 ML IV (08:46)
[2024-05-06] MEDS: ondansetron 2 mg/ML SDV 2 mL 8 MG IVP (08:46)
[2024-05-06 08:57] VITALS: BP 108/69; PULSE 108; TEMP 36.9; O2SAT 91
[2024-05-06] MEDS: [UNRECOGNIZED DRUG - REMARK] 508 MG IV (09:20)
[2024-05-06 10:31] VITALS: BP 103/73; PULSE 107; RESP 15; TEMP 36; O2SAT 91
[2024-05-07 08:48] VITALS: BP 104/70; PULSE 100; RESP 16; TEMP 36.5; O2SAT 91
[2024-05-07] MEDS: palonosetron 0.25 mg/5 mL SDV IVP (08:54)
[2024-05-07] MEDS: [UNRECOGNIZED DRUG - REMARK] 508 MG IV (09:12)
[2024-05-07 10:33] VITALS: BP 114/73; PULSE 95; RESP 16; TEMP 36.6; O2SAT 90
[2024-05-13 09:42] LABS: Basophils % 0.6 %; Eosinophils % 0.6 %; Hematocrit 40.5 % (36-47); Lymphocytes # 0.9 10^3/uL (0.8-4.8); Lymphocytes % 26.5 %; Mean Corpuscular HGB Conc 31.1 g/dL (30-55); Mean Corpuscular Hemoglobin 28.7 pg (27-33); Mean Corpuscular Volume 92.3 fl (85-98); Mean Platelet Volume 10.3 fL (7.4-10.4); Monocytes % 0.6 %; Neutrophils # 2.34 10^3/uL (1.8-7.7); Neutrophils % 70.5 %; Nucleated Red Blood Cells % 0 %; Platelet Count 201 10^3/cmm (157-399); Red Blood Count 4.39 10^6/uL (3.85-5.65); Red Cell Distribution Width 12.9 % (12.1-15.1); White Blood Count 3.32 10^3/uL (3.29-11.43)
[2024-05-13 09:59] LABS: Alanine Aminotransferase 29 U/L (0-33); Albumin Level 4.2 g/dL (3.5-5.2); Alkaline Phosphatase 209 U/L (35-105); Anion Gap 16.4 (5-19); Aspartate Amino Transferase 29 U/L (0-32); Blood Urea Nitrogen 25 mg/dL (6-20); Calcium 9.5 mg/dL (8.5-10.5); Carbon Dioxide 27 mmol/L (22-29); Chloride 97 mmol/L (98-107); Creatinine Clr Calc Pharmacy 125.3025; Globulin 3.8 g/dL (1.3-4.6); Glomerular Filtration Rate 133.4 mL/min (90-130); Glucose 127 mg/dL (65-115); Osmolality Calculated 288 mOsm/kg (285-295); Potassium 4.4 mmol/L (3.5-5.1); Sodium 136 mmol/L (136-145); Total Bilirubin 0.6 mg/dL (0.15-1.2)
== END 2024-05-17 23:59 | disposition home or self-care (01) ==
PROVIDERS: Nurse Practitioner Family; PCP Family Medicine; Visit Provider Internal Medicine Hematology & Oncology
DX: Z53.9 Procedure and treatment not carried out, unspecified reason (principal); C34.31 Malignant neoplasm of lower lobe, right bronchus or lung
CPT/HCPCS: 36591; 80053; 85025; 96375; 96413; J2405; J2469; J7030; J7050; J9181

== ENCOUNTER 2024-05-28 08:00 | Oncology outpatient (recurring) (ONCR) | payer MEDICAID, SELFPAY ==
[2024-05-26 08:18] LABS: Basophils % 0.3 %; Eosinophils % 0.1 %; Hematocrit 36.8 % (36-47); Lymphocytes # 2.1 10^3/uL (0.8-4.8); Lymphocytes % 26.2 %; Mean Corpuscular Hemoglobin 29.7 pg (27-33); Mean Corpuscular Volume 95.8 fl (85-98); Mean Platelet Volume 9.7 fL (7.4-10.4); Monocytes # 0.7 10^3/uL (0.2-0.9); Monocytes % 8.4 %; Neutrophils # 5.14 10^3/uL (1.8-7.7); Neutrophils % 64.5 %; Nucleated Red Blood Cells % 0 %; Platelet Count 309 10^3/cmm (157-399); Red Blood Count 3.84 10^6/uL (3.85-5.65); Red Cell Distribution Width 13.3 % (12.1-15.1); White Blood Count 7.97 10^3/uL (3.29-11.43)
[2024-05-26 08:29] LABS: Alanine Aminotransferase 14 U/L (0-33); Albumin Level 3.9 g/dL (3.5-5.2); Alkaline Phosphatase 190 U/L (35-105); Anion Gap 13.6 (5-19); Aspartate Amino Transferase 24 U/L (0-32); Blood Urea Nitrogen 15 mg/dL (6-20); Calcium 9.6 mg/dL (8.5-10.5); Carbon Dioxide 29 mmol/L (22-29); Chloride 102 mmol/L (98-107); Creatinine Clr Calc Pharmacy 102.3843; Globulin 3.7 g/dL (1.3-4.6); Glomerular Filtration Rate 108.1 mL/min (90-130); Glucose 118 mg/dL (65-115); Magnesium 1.8 mg/dL (1.7-2.3); Osmolality Calculated 294 mOsm/kg (285-295); Potassium 3.6 mmol/L (3.5-5.1); Sodium 141 mmol/L (136-145); Thyroid Stimulating Hormone 0.87 uIU/mL (0.27-4.20); Total Bilirubin 0.2 mg/dL (0.15-1.2); Total Protein 7.6 g/dL (6.6-8.7)
[2024-05-26] MEDS: famotidine 20 mg/2 mL INJ IVP (09:37)
[2024-05-26] MEDS: sodium chloride 0.9% 250 ML 75 ML IV (09:37)
[2024-05-26] MEDS: acetaminophen 325 mg Tablet 650 MG PO (09:39)
[2024-05-26] MEDS: OLANZapine 5 mg TABLET PO (09:40)
[2024-05-26] MEDS: ondansetron 2 mg/ML SDV 2 mL 8 MG IVP (09:40)
[2024-05-26] MEDS: diphenhydrAMINE 50 mg/mL SDV 1mL 25 MG IVP (09:43)
[2024-05-26] MEDS: dexamethasone 4 mg/mL INJ 5 mL 12 MG IV (09:46)
[2024-05-26] MEDS: aprepitant 130 mg/18 ml SDV IVP (09:50)
[2024-05-26] MEDS: atezolizumab 1,200 MG in sodium chloride 0.9% 250 ML 540 MG IV (10:44)
[2024-05-26] MEDS: SODIUM CHLORIDE 0.9% IV (11:31)
[2024-05-26] MEDS: CARBOPLATIN IV (11:31)
[2024-05-26] MEDS: [UNRECOGNIZED DRUG - REMARK] 508 MG IV (12:39)
[2024-05-26 13:52] VITALS: BP 113/79; PULSE 120; TEMP 36.4
[2024-05-26] MEDS: ipratropium-albuterol 3 mL Neb INHALATION (14:06)
[2024-05-27 08:06] VITALS: BP 113/72; PULSE 125; RESP 17; TEMP 36.3; O2SAT 96
[2024-05-27] MEDS: ondansetron 2 mg/ML SDV 2 mL 8 MG IVP (08:23)
[2024-05-27] MEDS: [UNRECOGNIZED DRUG - REMARK] 508 MG IV (08:43)
[2024-05-27 09:49] VITALS: BP 121/73; PULSE 125; RESP 17; TEMP 37.1; O2SAT 96
[2024-05-27] MEDS: ipratropium-albuterol 3 mL Neb INHALATION (09:56)
[2024-05-27 10:07] VITALS: BP 116/79; PULSE 124; RESP 17; O2SAT 99
[2024-05-27] MEDS: sodium chloride 0.9% 250 ML 999 ML IV (10:07)
[2024-05-27] MEDS: diphenhydrAMINE 50 mg/mL SDV 1mL 12.5 MG IVP (10:11)
[2024-05-27 11:07] VITALS: BP 110/75; PULSE 119; RESP 16; TEMP 36.7; O2SAT 95
[2024-05-28 07:57] VITALS: BP 102/66; PULSE 117; RESP 15; TEMP 36.7; O2SAT 91
[2024-05-28] MEDS: sodium chloride 0.9% 250 ML 75 ML IV (08:18)
[2024-05-28] MEDS: palonosetron 0.25 mg/5 mL SDV IVP (08:18)
[2024-05-28] MEDS: [UNRECOGNIZED DRUG - REMARK] 508 MG IV (08:40)
[2024-05-28] MEDS: pegfilgrastim 6 mg/0.6 mL Kit (onpro) SUBCUT (09:54)
[2024-05-28 10:14] VITALS: BP 115/81; PULSE 120; RESP 18; O2SAT 93
== END 2024-05-28 23:59 | disposition home or self-care (01) ==
PROVIDERS: Nurse Practitioner Family; PCP Family Medicine; Visit Provider Internal Medicine Medical Oncology
DX: Z51.11 Encounter for antineoplastic chemotherapy; Z79.899 Other long term (current) drug therapy; Z53.9 Procedure and treatment not carried out, unspecified reason; C34.90 Malignant neoplasm of unspecified part of unspecified bronchus or lung
CPT/HCPCS: 80053; 83735; 84443; 85025; 96360; 96375; 96377; 96413; 96417; J0185; J1100; J1200; J2405; J2469; J2506; J3490; J7030; J7040; J7050; J9022; J9045; J9181

== ENCOUNTER 2024-06-17 08:00 | Oncology outpatient (recurring) (ONCR) | payer MEDICAID, SELFPAY ==
[2024-06-16 07:57] LABS: Basophils % 0.4 %; Eosinophils % 0.1 %; Hematocrit 33.7 % (36-47); Lymphocytes # 2.1 10^3/uL (0.8-4.8); Lymphocytes % 18.3 %; Mean Corpuscular HGB Conc 30.6 g/dL (30-55); Mean Corpuscular Hemoglobin 28.8 pg (27-33); Mean Corpuscular Volume 94.1 fl (85-98); Mean Platelet Volume 10.1 fL (7.4-10.4); Monocytes # 0.8 10^3/uL (0.2-0.9); Monocytes % 7.1 %; Neutrophils # 8.24 10^3/uL (1.8-7.7); Neutrophils % 73.2 %; Nucleated Red Blood Cells % 0 %; Platelet Count 256 10^3/cmm (157-399); Red Blood Count 3.58 10^6/uL (3.85-5.65); Red Cell Distribution Width 14.2 % (12.1-15.1); White Blood Count 11.25 10^3/uL (3.29-11.43)
[2024-06-16 08:15] LABS: Alanine Aminotransferase 22 U/L (0-33); Albumin Level 3.9 g/dL (3.5-5.2); Alkaline Phosphatase 277 U/L (35-105); Anion Gap 17.2 (5-19); Aspartate Amino Transferase 25 U/L (0-32); Blood Urea Nitrogen 15 mg/dL (6-20); Calcium 9.5 mg/dL (8.5-10.5); Carbon Dioxide 27 mmol/L (22-29); Chloride 98 mmol/L (98-107); Globulin 3.8 g/dL (1.3-4.6); Glomerular Filtration Rate 90.5 mL/min (90-130); Glucose 170 mg/dL (65-115); Osmolality Calculated 293 mOsm/kg (285-295); Potassium 3.2 mmol/L (3.5-5.1); Sodium 139 mmol/L (136-145); Total Bilirubin 0.3 mg/dL (0.15-1.2); Total Protein 7.7 g/dL (6.6-8.7)
[2024-06-16 09:24] LABS: Magnesium 1.7 mg/dL (1.7-2.3); Thyroid Stimulating Hormone 0.82 uIU/mL (0.27-4.20)
[2024-06-16] MEDS: acetaminophen 325 mg Tablet 650 MG PO (10:31)
[2024-06-16] MEDS: sodium chloride 0.9% 250 ML 75 ML IV (10:32)
[2024-06-16] MEDS: aprepitant 130 mg/18 ml SDV IVP (10:38)
[2024-06-16] MEDS: ondansetron 2 mg/ML SDV 2 mL 8 MG IVP (10:41)
[2024-06-16] MEDS: famotidine 20 mg/2 mL INJ IVP (10:43)
[2024-06-16] MEDS: dexamethasone 4 mg/mL INJ 5 mL 12 MG IV (10:44)
[2024-06-16] MEDS: diphenhydrAMINE 50 mg/mL SDV 1mL 25 MG IVP (10:46)
[2024-06-16] MEDS: OLANZapine 5 mg TABLET PO (10:52)
[2024-06-16] MEDS: atezolizumab 1,200 MG in sodium chloride 0.9% 250 ML 600 MG IV (12:11)
[2024-06-16] MEDS: SODIUM CHLORIDE 0.9% IV (13:20)
[2024-06-16] MEDS: CARBOPLATIN IV (13:20)
[2024-06-16] MEDS: [UNRECOGNIZED DRUG - REMARK] 508 MG IV (14:11)
[2024-06-16 17:11] VITALS: BP 95/65; PULSE 116; RESP 16; TEMP 36.9; O2SAT 93
[2024-06-17 08:05] VITALS: BP 98/56; PULSE 124; RESP 16; TEMP 36.4; O2SAT 91
[2024-06-17] MEDS: sodium chloride 0.9% 250 ML 75 ML IV (08:19)
[2024-06-17] MEDS: ondansetron 2 mg/ML SDV 2 mL 8 MG IVP (08:20)
[2024-06-17] MEDS: [UNRECOGNIZED DRUG - REMARK] 508 MG IV (08:58)
== END 2024-06-17 23:59 | disposition home or self-care (01) ==
PROVIDERS: Nurse Practitioner; PCP Family Medicine; Visit Provider Internal Medicine Medical Oncology
DX: Z51.11 Encounter for antineoplastic chemotherapy; C34.31 Malignant neoplasm of lower lobe, right bronchus or lung; Z53.9 Procedure and treatment not carried out, unspecified reason; Z79.634 Long term (current) use of topoisomerase inhibitor
CPT/HCPCS: 80053; 83735; 84443; 85025; 96375; 96413; 96417; J0185; J1100; J1200; J2405; J3490; J7030; J7040; J7050; J9022; J9045; J9181

== ENCOUNTER 2024-06-19 08:02 | Oncology outpatient (recurring) (ONCR) | payer MEDICAID, SELFPAY ==
[2024-06-19 08:19] VITALS: BP 103/70; PULSE 130; RESP 18; TEMP 37.9; O2SAT 89
[2024-06-19] MEDS: ertapenem 1,000 mg SDV 1000 MG IVP (09:01)
[2024-06-19] MEDS: sodium chloride 0.9% 250 ML 75 ML IV (09:01)
[2024-06-19] MEDS: palonosetron 0.25 mg/5 mL SDV IVP (09:08)
[2024-06-19] MEDS: [UNRECOGNIZED DRUG - REMARK] 508 MG IV (09:48)
[2024-06-19 11:25] VITALS: BP 87/54; PULSE 110; RESP 18; TEMP 37.2; O2SAT 91
== END 2024-07-18 23:59 | disposition home or self-care (01) ==
PROVIDERS: PCP Family Medicine; Visit Provider Internal Medicine Medical Oncology
DX: Z51.11 Encounter for antineoplastic chemotherapy (principal); C34.90 Malignant neoplasm of unspecified part of unspecified bronchus or lung; Z79.634 Long term (current) use of topoisomerase inhibitor
CPT/HCPCS: 96375; 96413; J1335; J2469; J7030; J7050; J9181

== ENCOUNTER 2024-06-19 20:48 | Inpatient (IN) | payer OTHER, MEDICAID, SELFPAY ==
[2024-06-19] VITALS (10 sets, daily range): BP systolic 92–112; BP diastolic 62–91; PULSE 115–139; RESP 14–20; TEMP 37.4; O2SAT 88–96; BMI 20.5
--- NOTE | 2024-06-19 20:52 | XRR_ITS ---
PROCEDURE INFORMATION: Exam: XR Chest Exam date and time: 06/19/2024 9:26 PM Age: 43 years old Clinical indication: Shortness of breath; Prior surgery; Surgery date: 1-6 months; Surgery type: Port a-cath; Patient HX: Stage 4 lung CA TECHNIQUE: Imaging protocol: Radiologic exam of the chest. Views: 1 view. COMPARISON: CT angio chest PE protcl [id number] 03/18/2024 10:04 PM FINDINGS: Tubes, catheters and devices: Right internal jugular infusion port tip is in the right atrium. Lungs: Volume loss in the right lung. Clear left lung. Pleural spaces: There is a right pleural effusion. Heart/Mediastinum: Mediastinal shift to the right side. Bones/joints: Unremarkable. XR/XR chest 1V portable [id number] IMPRESSION: Right pleural effusion with right lower lung volume loss and mediastinal shift to the right side.
--- NOTE | 2024-06-19 20:52 | ECG_ITS ---
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 Measurements Intervals [place] Rate: 139 P: 0 [place]: 0 QRS: 54 QRSD: 84 T: -42 QT: 329 QTc: 501 Interpretive Statements Sinus tachycardia ST DEVIATION AND MODERATE T-WAVE ABNORMALITY, CONSIDER ANTEROLATERAL ISCHEMIA [-0.1+ mV T-WAVE IN V3-V6] ST DEVIATION AND MODERATE T-WAVE ABNORMALITY, CONSIDER INFERIOR ISCHEMIA [-0.1+ mV T-WAVE IN II/aVF] Compared to ECG 03/18/2024 22:06:23 Possible ischemia now present T-wave abnormality still present Electronically Signed On 06-20-2024 21:41:52 SE[employer]TER by Miguel Juarez M.D. [email or web address]
--- NOTE | 2024-06-19 20:59 | ED_ITS ---
Documented by User: Love Gonzalez MD 06/19/24 21:38 HPI - SOB/Dyspnea 2 General: Chief Complaint: Shortness of Breath/Dyspnea Stated Complaint: SOB Time Seen by Provider: 06/19/24 20:52 History of Present Illness: HPI Narrative: 43-year-old female with a history of zeinab g cancer who received chemotherapy today who presents the emergency room with fever, cough, shortness of breath. She says this all started today. EMS reports that her oxygen sats were in the 80s on presentation on room air. She has a temp of 99.4 on presentation here. Still with some oxygen requirement. Some inspiratory chest pain. Weakness. No altered mental status. No focal motor deficits. Related Data Home Medications Medication Instructions Recorded Confirmed atorvastatin 20 mg tablet 20 mg PO DAILY 04/22/24 06/16/24 levetiracetam 500 mg tablet 500 mg PO DAILY 04/22/24 06/16/24 ondansetron 8 mg disintegrating 8 mg PO DAILY 04/22/24 06/16/24 tablet aspirin 81 mg tablet,delayed 81 mg PO DAILY 04/24/24 06/16/24 release Previous Rx's Medication Instructions Recorded prochlorperazine maleate 10 mg 10 mg PO Q4H PRN mild nausea #30 04/28/24 tablet (Compazine) tabs olanzapine 5 mg tablet 5 mg PO QPM Breakthrough Nausea 05/05/24 and Vomitting #30 tabs diazepam 5 mg tablet (Valium) 5 mg PO BID PRN anxiety #60 tabs 05/26/24 hydrocodone 7.5 mg-acetaminophen 1 tab PO Q6H PRN pain 30 days #112 05/26/24 325 mg tablet tabs lidocaine-prilocaine 2.5 %-2.5 % 1 applic topical .COMPLEX #30 grams 06/16/24 topical cream midodrine 2.5 mg tablet 2.5 mg PO TID #90 tabs 06/17/24 levofloxacin 500 mg tablet 500 mg PO DAILY 10 days #10 tabs 06/19/24 Allergies Allergy/AdvReac Type Severity Reaction Status Date / Time No Known Allergies Allergy Verified 06/16/24 08:23 Review of Systems 2 Narrative: Constitutional symptoms: Negative except as documented in HPI. Skin symptoms: Negative except as documented in HPI. Eye symptoms: Negative except as documented in HPI. ENMT symptoms: Negative except as documented in HPI. Respiratory symptoms: Negative except as documented in HPI. Cardiovascular symptoms: Negative except as documented in HPI. Gastrointestinal symptoms: Negative except as documented in HPI. Genitourinary symptoms: Negative except as documented in HPI. Musculoskeletal symptoms: Negative except as documented in HPI. Neurologic symptoms: Negative except as documented in HPI. Psychiatric symptoms: Negative except as documented in HPI. Endocrine symptoms: Negative except as documented in HPI. PFSH ED 2 PFSH: Medical History Port-A-Cath in place Hypotension CVA (cerebral vascular accident) Social History Smoking and tobacco/nicotine status: former use of tobacco/nicotine Alcohol intake: never Physical Exam 2 Narrative: EXAM NARRATIVE: General: Alert, no acute distress. Skin: Warm, dry. Head: Normocephalic, atraumatic. Neck: Supple, trachea midline. Eye: Extraocular movements are intact. Ears, nose, mouth and throat: Oral mucosa moist. Cardiovascular: Tachycardic, Normal peripheral perfusion. Respiratory: coarse, scattered wheeze, mild increased wob. tachypnea, breath sounds are equal, Symmetrical chest wall expansion. Gastrointestinal: Soft, Nontender, Non distended, Normal bowel sounds. Musculoskeletal: Normal ROM, no deformity. Neurological: Alert and oriented to person, place, time, and situation, No focal neurological deficit observed. Psychiatric: Cooperative, appropriate mood & affect. Course 2 Vital Signs: Vital signs: Vital Signs Temperature 99.4 F 06/19/24 20:49 Pulse Rate 126 H 06/19/24 23:00 Respiratory Rate 14 06/19/24 22:15 Blood Pressure 108/75 06/19/24 22:57 Pulse Oximetry 93 06/19/24 23:00 Oxygen Delivery Me thod Nasal Cannula 06/19/24 21:55 Oxygen Flow Rate 2 06/19/24 21:55 MDM - SOB/Dyspnea Medical Decision Making Differential diagnosis for patient with shortness of breath includes but is not limited to and based on the above HPI, review of systems and physical exam: Pneumonia. Bronchitis. Asthma or COPD with acute exacerbation. Acute coronary syndrome / [place]. Pulmonary embolism. Anxiety. Congestive heart failure. Viral infections including influenza and Covid-19. Atrial fibrillation. Anxiety. Pleural effusion. Pneumothorax. Orders placed to evaluate differential diagnosis based on the above differential, HPI and physical exam Chest x-ray: Large right-sided pleural effusion/mass. This is known. Appears a bit worse from previous. Interval placement of a port. Atelectasis versus infiltrate above the mass/effusion. EKG: atrial fibrillation with rapid ventricular response, No ST-T changes, no ectopy, This was reviewed and interpreted by myself the ER physician at 2054. I have given meropenem and linezolid as she has been receiving chemotherapy and is likely immunocompromise. She has had fever oxygen requirements and is tachycardic so treating empirically for sepsis. First liter of fluids is ordered. Also with her being hypoxemic I have ordered Solu-Medrol, and 2 updrafts. Patient care transitioned to Dr. Thurman at shift change. Lab Data 06/19/24 22:26 06/19/24 20:33 Labs/Radiology: Radiology Impressions Chest X-Ray 06/19/24 20:52 IMPRESSION: Right pleural effusion with right lower lung volume loss and mediastinal shift to the right side. Chest CTA 06/19/24 22:21 IMPRESSION: 1. Decrease in the size of the right hilar mass encasing the right middle and right lower lobe bronchi with persistent postobstructive collapse of the right middle and right lower lobe. Moderate right pleural effusion. 2. No pulmonary embolism. 3. Small right pneumothorax. 4. Right upper lobe nodular infiltrates, likely infectious/inflammatory. ADDENDUM: 06/19/24 [id number] THIS REPORT CONTAINS FINDINGS THAT MAY BE CRITICAL TO PATIENT CARE. The findings were verbally communicated via telephone conference with ANTONI THURMAN at 11:31 PM INSURANCE APPRAISER on 06/19/2024. The findings were acknowledged and understood. Laboratory Results WBC 13.95 10^3/uL (3.29-11.43) H 06/19/24 22:26 Corrected WBC Cancelled 06/19/24 20:33 RBC 3.26 10^6/uL (3.85-5.65) L 06/19/24 22: Hgb 9.60 g/dL (11.27-16.99) L 06/19/24 22: Hct 29.9 % (36-47) L 06/19/24 22: MCV 91.7 fl (85-98) 06/19/24 22: MCH 29.4 pg (27-33) 06/19/24 22: MCHC 32.1 g/dL (30-55) 06/19/24 22: RDW 14.8 % (12.1-15.1) 06/19/24: Plt Count 431 10^3/cmm (157-399) H 06/19/24: MPV 10.1 fL (7.4-10.4) 06/19/24 22: Gran % Cancelled 06/19/24 20:33 Neut % (Auto) 88.6 % 06/19/24 22: Lymph % (Auto) 9.7 % 06/19/24: Mcdonough % (Auto) 0.6 % 06/19/24: Eos % (Auto) 0.0 % 06/19/24: Baso % (Auto) 0.2 % 06/19/24: Neut # (Auto) 12.36 10^3/uL (1.8-7.7) H 06/19/24 22: Lymph # (Auto) 1.4 10^3/uL (0.8-4.8) 06/19/24: Mcdonough # (Auto) 0.1 10^3/uL (0.2-0.9) L 06/19/24 22: Eos # (Auto) 0.0 10^3/uL (0.0-0.8) 06/19/24: Baso # (Auto) 0.0 10^3/uL (0.0-0.1) 06/19/24: Absolute Gran (auto) Cancelled 06/19/24 20:33 Nucleated RBC % (auto) 0 % 06/19/24: Nucleated RBCs # 0.0 /100WBC 06/19/24 22: Sodium 136 mmol/L (136-145) 06/19/24 20:33 Potassium 3.4 mmol/L (3.5-5.1) L 06/19/24 20:33 Chloride 94 mmol/L (98-107) L 06/19/24 20:33 Carbon Dioxide 25 mmol/L (22-29) 06/19/24 20:33 Anion Gap 20.4 (5-19) H 06/19/24 20:33 BUN 13 mg/dL (6-20) 06/19/24 20:33 Creatinine 0.6 mg/dL (0.5-0.9) 06/19/24 20:33 GFR Calculation 108.1 mL/min (90-130) 06/19/24 20:33 Glucose 124 mg/dL (65-115) H 06/19/24 20:33 Calculated Osmolality 284 mOsm/kg (285-295) L 06/19/24 20:33 Lactic Acid 1.4 mmol/L (0.5-2.2) 06/19/24 21:28 Calcium 9.5 mg/dL (8.5-10.5) 06/19/24 20:33 Total Bilirubin 0.5 mg/dL (0.15-1.2) 06/19/24 20:33 AST 30 U/L (0-32) 06/19/24 20:33 ALT 23 U/L (0-33) 06/19/24 20:33 Alkaline Phosphatase 291 U/L (35-105) H 06/19/24 20:33 Troponin T Baseline < 6 ng/L (0-10) 06/19/24 20:33 Troponin T 120 Minute 6.00 ng/L (0-10) 06/19/24 22:26 Delta Troponin T 0.59512 ABS# (0-10) 06/19/24 22:26 Total Protein 8.0 g/dL (6.6-8.7) 06/19/24 20:33 Albumin 3.9 g/dL (3.5-5.2) 06/19/24 20:33 Globulin 4.1 g/dL (1.3-4.6) 06/19/24 20:33 Procalcitonin 0.22 ng/mL (0-0.5) 06/19/24 20:33 Discharge Plan Discharge Patient Disposition: Admitted As Inpatient Admit Provider: Pauline Grace Clinical Impression: Hypokalemia Lung cancer Qualifiers: Laterality: right Lung location: lower lobe of lung Qualified Code(s): C34.31 - Malignant neoplasm of lower lobe, right bronchus or lung Hypotension Qualifiers: Hypotension type: hypotension due to hypovolemia Qualified Code(s): E86.1 - Hypovolemia Community acquired pneumonia Qualifiers: Laterality: right Lung location: unspecified part of lung Qualified Code(s): J 18.9 - Pneumonia, unspecified organism Atrial flutter Qualifiers: Atrial flutter type: unspecified Qualified Code(s): I48.92 - Unspecified atrial flutter Condition: Stable Coding Level of Care Code ED [employer] Product Fabricator for g Fwd Documented by User: Antoni Thurman DO 06/20/24 00:23 HPI - SOB/Dyspnea 2 General: Chief Complaint: Shortness of Breath/Dyspnea Stated Complaint: SOB Time Seen by Provider: 06/19/24 20:52 Related Data Home Medications Medication Instructions Recorded Confirmed atorvastatin 20 mg tablet 20 mg PO DAILY 04/22/24 06/16/24 levetiracetam 500 mg tablet 500 mg PO DAILY 04/22/24 06/16/24 ondansetron 8 mg disintegrating 8 mg PO DAILY 04/22/24 06/16/24 tablet aspirin 81 mg tablet,delayed 81 mg PO DAILY 04/24/24 06/16/24 release Previous Rx's Medication Instructions Recorded prochlorperazine maleate 10 mg 10 mg PO Q4H PRN mild nausea #30 04/28/24 tablet (Compazine) tabs olanzapine 5 mg tablet 5 mg PO QPM Breakthrough Nausea 05/05/24 and Vomitting #30 tabs diazepam 5 mg tablet (Valium) 5 mg PO BID PRN anxiety #60 tabs 05/26/24 hydrocodone 7.5 mg-acetaminophen 1 tab PO Q6H PRN pain 30 days #112 05/26/24 325 mg tablet tabs lidocaine-prilocaine 2.5 %-2.5 % 1 applic topical .COMPLEX #30 grams 06/16/24 topical cream midodrine 2.5 mg tablet 2.5 mg PO TID #90 tabs 06/17/24 levofloxacin 500 mg tablet 500 mg PO DAILY 10 days #10 tabs 06/19/24 Allergies Allergy/AdvReac Type Severity Reaction Status Date / Time No Known Allergies Allergy Verified 06/16/24 08:23 [facility] ED 2 [facility]: Medical History Port-A-Cath in place Hypotension CVA (cerebral vascular accident) Social History Smoking and tobacco/nicotine status: former use of tobacco/nicotine Alcohol intake: never Course 2 Vital Signs: Vital signs: Vital Signs Temperature 99.4 F 06/19/24 20:49 Pulse Rate 126 H 06/19/24 23:00 Respiratory Rate 14 06/19/24 22:15 Blood Pressure 108/75 06/19/24 22:57 Pulse Oximetry 93 06/19/24 23:00 Oxygen Delivery Me thod Nasal Cannula 06/19/24 21:55 Oxygen Flow Rate 2 06/19/24 21:55 MDM - SOB/Dyspnea Medical Decision Making Differential diagnosis for patient with shortness of breath includes but is not limited to and based on the above HPI, review of systems and physical exam: Pneumonia. Bronchitis. Asthma or COPD with acute exacerbation. Acute coronary syndrome / [place]. Pulmonary embolism. Anxiety. Congestive heart failure. Viral infections including influenza and Covid-19. Atrial fibrillation. Anxiety. Pleural effusion. Pneumothorax. Orders placed to evaluate differential diagnosis based on the above differential, HPI and physical exam Chest x-ray: Large right-sided pleural effusion/mass. This is known. Appears a bit worse from previous. Interval placement of a port. Atelectasis versus infiltrate above the mass/effusion. EKG: atrial fibrillation with rapid ventricular response, No ST-T changes, no ectopy, This was reviewed and interpreted by myself the ER physician at 2054. I have given meropenem and linezolid as she has been receiving chemotherapy and is likely immunocompromise. She has had fever oxygen requirements and is tachycardic so treating empirically for sepsis. First liter of fluids is ordered. Also with her being hypoxemic I have ordered Solu-Medrol, and 2 updrafts. Patient care transitioned to Dr. Thurman at shift change. Care assumed: Upon review of the patient's EKG it appears that she is currently in atrial flutter with an increased heart rate. Additionally her chest x-ray is abnormal. CTA chest demonstrated moderate right pleural effusion with small right pneumothorax and right upper lobe nodular infiltrates. Plan to treat this like community-acquired pneumonia. Patient has already received empiric antibiotics by off going physician. Secondary to history with cancer, weakness, O2 demand, and pneumothorax will plan for admission. Dr. Grace agreed to admission to stepdown unit. Diltiazem was ordered for a flutter and rate control, this medication was never given. The patient converted without this medication. Lab Data 06/19/24 22:26 06/19/24 20:33 Labs/Radiology: Radiology Impressions Chest X-Ray 06/19/24 20:52 IMPRESSION: Right pleural effusion with right lower lung volume loss and mediastinal shift to the right side. Chest CTA 06/19/24 22:21 IMPRESSION: 1. Decrease in the size of the right hilar mass encasing the right middle and right lower lobe bronchi with persistent postobstructive collapse of the right middle and right lower lobe. Moderate right pleural effusion. 2. No pulmonary embolism. 3. Small right pneumothorax. 4. Right upper lobe nodular infiltrates, likely infectious/inflammatory. ADDENDUM: 06/19/24 5313 THIS REPORT CONTAINS FINDINGS THAT MAY BE CRITICAL TO PATIENT CARE. The findings were verbally communicated via telephone conference with ANTONI THURMAN at 11:31 PM INSURANCE APPRAISER on 06/19/2024. The findings were acknowledged and understood. Laboratory Results WBC 13.95 10^3/uL (3.29-11.43) H 06/19/24 22: Corrected WBC Cancelled 06/19/24 20:33 RBC 3.26 10^6/uL (3.85-5.65) L 06/19/24 22: Hgb 9.60 g/dL (11.27-16.99) L 06/19/24 22: Hct 29.9 % (36-47) L 06/19/24 22: MCV 91.7 fl (85-98) 06/19/24 22: MCH 29.4 pg (27-33) 06/19/24 22: MCHC 32.1 g/dL (30-55) 06/19/24 22: RDW 14.8 % (12.1-15.1) 06/19/24 22: Plt Count 431 10^3/cmm (157-399) H 06/19/24 22: MPV 10.1 fL (7.4-10.4) 06/19/24 22:26 Gran % Cancelled 06/19/24 20:33 Neut % (Auto) 88.6 % 06/19/24 22: Lymph % (Auto) 9.7 % 06/19/24 22: Mcdonough % (Auto) 0.6 % 06/19/24 22: Eos % (Auto) 0.0 % 06/19/24 22: Baso % (Auto) 0.2 % 06/19/24 22: Neut # (Auto) 12.36 10^3/uL (1.8-7.7) H 06/19/24 22: Lymph # (Auto) 1.4 10^3/uL (0.8-4.8) 06/19/24 22: Mcdonough # (Auto) 0.1 10^3/uL (0.2-0.9) L 06/19/24 22: Eos # (Auto) 0.0 10^3/uL (0.0-0.8) 06/19/24 22: Baso # (Auto) 0.0 10^3/uL (0.0-0.1) 06/19/24 22: Absolute Gran (auto) Cancelled 06/19/24 20:33 Nucleated RBC % (auto) 0 % 06/19/24: Nucleated RBCs # 0.0 /100WBC 06/19/24 22: Sodium 136 mmol/L (136-145) 06/19/24 20:33 Potassium 3.4 mmol/L (3.5-5.1) L 06/19/24 20:33 Chloride 94 mmol/L (98-107) L 06/19/24 20:33 Carbon Dioxide 25 mmol/L (22-29) 06/19/24 20:33 Anion Gap 20.4 (5-19) H 06/19/24 20:33 BUN 13 mg/dL (6-20) 06/19/24 20:33 Creatinine 0.6 mg/dL (0.5-0.9) 06/19/24 20:33 GFR Calculation 108.1 mL/min (90-130) 06/19/24 20:33 Glucose 124 mg/dL (65-115) H 06/19/24 20:33 Calculated Osmolality 284 mOsm/kg (285-295) L 06/19/24 20:33 Lactic Acid 1.4 mmol/L (0.5-2.2) 06/19/24 21:28 Calcium 9.5 mg/dL (8.5-10.5) 06/19/24 20:33 Total Bilirubin 0.5 mg/dL (0.15-1.2) 06/19/24 20:33 AST 30 U/L (0-32) 06/19/24 20:33 ALT 23 U/L (0-33) 06/19/24 20:33 Alkaline Phosphatase 291 U/L (35-105) H 06/19/24 20:33 Troponin T Baseline < 6 ng/L (0-10) 06/19/24 20:33 Troponin T 120 Minute 6.00 ng/L (0-10) 06/19/24 22:26 Delta Troponin T 0.97633 ABS# (0-10) 06/19/24 22:26 Total Protein 8.0 g/dL (6.6-8.7) 06/19/24 20:33 Albumin 3.9 g/dL (3.5-5.2) 06/19/24 20:33 Globulin 4.1 g/dL (1.3-4.6) 06/19/24 20:33 Procalcitonin 0.22 ng/mL (0-0.5) 06/19/24 20:33 All radiology interpretation(s) finalized by discharge EKG Data EKG 2: Interpretation: Sinus tachycardia, normal axis, rate of 112, IL interval 161, QRS duration 91, QTc 413, no ST segment elevation or depression Discharge Plan Discharge Patient Disposition: Admitted As Inpatient Admit Provider: Pauline Grace Clinical Impression: Hypokalemia Lung cancer Qualifiers: Laterality: right Lung location: lower lobe of lung Qualified Code(s): C34.31 - Malignant neoplasm of lower lobe, right bronchus or lung Hypotension Qualifiers: Hypotension type: hypotension due to hypovolemia Qualified Code(s): E86.1 - Hypovolemia Community acquired pneumonia Qualifiers: Laterality: right Lung location: unspecified part of lung Qualified Code(s): J 18.9 - Pneumonia, unspecified organism Atrial flutter Qualifiers: Atrial flutter type: unspecified Qualified Code(s): I48.92 - Unspecified atrial flutter Condition: Stable Coding Level of Care Code ED [employer] for John Barrios
[2024-06-19] MEDS: sodium chloride 0.9% 1,000 ML 999 ML IV (21:33)
[2024-06-19] MEDS: ipratropium-albuterol 3 mL Neb INHALATION (21:55)
[2024-06-19 21:57] LABS: Alanine Aminotransferase 23 U/L (0-33); Albumin Level 3.9 g/dL (3.5-5.2); Alkaline Phosphatase 291 U/L (35-105); Anion Gap 20.4 (5-19); Aspartate Amino Transferase 30 U/L (0-32); Blood Urea Nitrogen 13 mg/dL (6-20); Calcium 9.5 mg/dL (8.5-10.5); Carbon Dioxide 25 mmol/L (22-29); Chloride 94 mmol/L (98-107); Creatinine Clr Calc Pharmacy 102.0448; Globulin 4.1 g/dL (1.3-4.6); Glomerular Filtration Rate 108.1 mL/min (90-130); Glucose 124 mg/dL (65-115); Osmolality Calculated 284 mOsm/kg (285-295); Potassium 3.4 mmol/L (3.5-5.1); Sodium 136 mmol/L (136-145); Total Bilirubin 0.5 mg/dL (0.15-1.2); Troponin(5th) Baseline < 6 ng/L (0-10)
[2024-06-19 22:00] LABS: Lactic Sepsis W/Reflex 1.4 mmol/L (0.5-2.2)
[2024-06-19] MEDS: methylPREDNISolone sod succ 125 mg/2 mL INJ IVP (22:13)
[2024-06-19] MEDS: acetaminophen 1,000 MG/100 ML PIGGYBACK 400 MG IV (22:14)
--- NOTE | 2024-06-19 22:21 | CTR_ITS ---
PROCEDURE INFORMATION: Exam: CTA Chest With Contrast Exam date and time: 06/19/2024 10:45 PM Age: 43 years old Clinical indication: Condition or disease; Other: Lung cancer; Shortness of breath; Additional info: Shortness of breath and known lung cancer, chest x-ray appears worse than previous. CT scan to help TECHNIQUE: Imaging protocol: Computed tomographic angiography of the chest with contrast. Exam focused on the arteries. 3D rendering (Not supervised by radiologist): MIP and/or 3D reconstructed images were created by the technologist. Radiation optimization: All CT scans at this facility use at least one of these dose optimization techniques: automated exposure control; mA and/or kV adjustment per patient size (includes targeted exams where dose is matched to clinical indication); or iterative reconstruction. Contrast material: OMNI 350; Contrast volume: 55 ml; Contrast route: INTRA-ARTERIAL (ARTERIAL); COMPARISON: CT angio chest PE protcl [id number] 03/18/2024 10:04 PM RADIATION DOSE METRICS: Total DLP (mGy-cm): 154.4 FINDINGS: Pulmonary arteries: Normal. No pulmonary emboli. Aorta: Unremarkable. No aortic aneurysm. No aortic dissection. Lungs: Right middle and right lower lobe collapse. Patchy nodular infiltrates in the right upper lobe. Pleural spaces: Moderate right pleural effusion. There is a small right pneumothorax right internal jugular infusion port. Heart: Unremarkable. No cardiomegaly. No pericardial effusion. Mediastinal space: Decrease in the size of the right hilar mass measuring 3.1 x 2.8 cm, previously 5.6 x 5.6 cm. Lymph nodes: Stable precarinal lymph node measuring 8 mm in short axis. Bones/joints: Mild curvature of the thoracic spine convex to the left. The thoracic spine demonstrates mild degenerative changes at multiple levels. Soft tissues: Unremarkable. CT/CT angio chest PE protcl [id number] IMPRESSION: 1. Decrease in the size of the right hilar mass encasing the right middle and right lower lobe bronchi with persistent postobstructive collapse of the right middle and right lower lobe. Moderate right pleural effusion. 2. No pulmonary embolism. 3. Small right pneumothorax. 4. Right upper lobe nodular infiltrates, likely infectious/inflammatory.
[2024-06-19] MEDS: iohexol 350 mg/mL 500 mL Btl (per mL) IV (22:49)
[2024-06-19 22:50] LABS: Troponin 5 2HR Delta 0.00001 ABS# (0-10)
--- NOTE | 2024-06-19 22:52 | ECG_ITS ---
[facility] Test Date: 2024-06-20 Pat Name: Lizeth Brandt Department: Room: 102 Gender: Female Customer Support Coordinator: : 1980 Requested By: Love Ferrera Order Number: [id number] Phillip MD: Miguel Juarez M.D. Measurements Intervals [place] Rate: 112 P: 41 IN: 161 QRS: 58 QRSD: 91 T: 15 QT: 347 QTc: 475 Interpretive Statements SINUS TACHYCARDIA NONSPECIFIC T-WAVE ABNORMALITY ABNORMAL RHYTHM ECG Compared to ECG 06/19/2024 20:53:35 Atrial flutter no longer present Possible ischemia no longer present T-wave abnormality still present Electronically Signed On 06-21-2024 21:39:04 RN CVICU by Miguel Juarez M.D. [email or web address]
[2024-06-19 23:13] LABS: Basophils % 0.2 %; Hematocrit 29.9 % (36-47); Lymphocytes # 1.4 10^3/uL (0.8-4.8); Lymphocytes % 9.7 %; Mean Corpuscular HGB Conc 32.1 g/dL (30-55); Mean Corpuscular Hemoglobin 29.4 pg (27-33); Mean Corpuscular Volume 91.7 fl (85-98); Mean Platelet Volume 10.1 fL (7.4-10.4); Monocytes # 0.1 10^3/uL (0.2-0.9); Monocytes % 0.6 %; Neutrophils # 12.36 10^3/uL (1.8-7.7); Neutrophils % 88.6 %; Nucleated Red Blood Cells % 0 %; Platelet Count 431 10^3/cmm (157-399); Red Blood Count 3.26 10^6/uL (3.85-5.65); Red Cell Distribution Width 14.8 % (12.1-15.1); White Blood Count 13.95 10^3/uL (3.29-11.43)
[2024-06-19] MEDS: meropenem 500 mg SDV IVP (23:13)
[2024-06-19] MEDS: linezolid premix 600 MG/300 ML PREMIX 300 MG IV (23:17)
--- NOTE | 2024-06-19 23:40 | P.HP_ITS ---
Providers/Chief Complaint 2 Primary Care Provider: Antonella Combs DO Chief Complaint: SOB History of Present Illness Lizeth Brandt is a 43 year old female small cell lung cancer, diagnosed on 04/01/24 by right thoracentesis with cytology showing a neuroendocrine neoplasm. Presented after chemotherapy today with chief complaint of fever, high heart rate, palpitations, shortness of breath and dry cough. 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 She has been giving meropenem and linezolid per Dr. Gonzalez At the time of my evaluation patient is on 2 L nasal cannula saturating well, afebrile, no signs of meningitis, awake and alert Patient takes midodrine, stating that her blood pressure always runs in 90s Review of Systems 2 Const: Reports: fever(s) and chills Eyes: Denies: change in vision ENMT: Denies: throat pain Card: Reports: palpitations Resp: Reports: dyspnea Musc: Reports: back pain Medications/Allergies Home Medications Medication Instructions Recorded Confirmed Last Taken Type atorvastatin 20 mg tablet 20 mg PO DAILY 04/22/24 06/16/24 04/29/24 History levetiracetam 500 mg tablet 500 mg PO DAILY 04/22/24 06/16/24 2 Weeks Ago History ~04/16/24 ondansetron 8 mg disintegrating 8 mg PO DAILY 04/22/24 06/16/24 2 Weeks Ago History tablet ~04/16/24 aspirin 81 mg tablet,delayed 81 mg PO DAILY 04/24/24 06/16/24 04/29/24 History release prochlorperazine maleate 10 mg 10 mg PO Q4H PRN mild nausea #30 04/28/24 06/16/24 2 Weeks Ago Rx tablet (Compazine) tabs ~04/16/24 olanzapine 5 mg tablet 5 mg PO QPM Breakthrough Nausea 05/05/24 06/16/24 Unknown Rx and Vomitting #30 tabs diazepam 5 mg tablet (Valium) 5 mg PO BID PRN anxiety #60 tabs 05/26/24 06/16/24 Unknown Rx hydrocodone 7.5 mg-acetaminophen 1 tab PO Q6H PRN pain 30 days #112 05/26/24 06/16/24 Unknown Rx 325 mg tablet tabs lidocaine-prilocaine 2.5 %-2.5 % 1 applic topical .COMPLEX #30 grams 06/16/24 06/16/24 Unknown Rx topical cream midodrine 2.5 mg tablet 2.5 mg PO TID #90 tabs 06/17/24 Unknown Rx levofloxacin 500 mg tablet 500 mg PO DAILY 10 days #10 tabs 06/19/24 Unknown Rx Allergies Allergy/AdvReac Type Severity Reaction Status Date / Time No Known Allergies Allergy Verified 06/16/24 08:23 PFSH Acute 2 PFSH: Medical History (Updated 06/20/24 @ 00:40 by Pauline Grace MD) Small cell lung cancer Port-A-Cath in place Hypotension CVA (cerebral vascular accident) Social History Smoking and tobacco/nicotine status: former use of tobacco/nicotine Alcohol intake: never Vitals/I&O/Wt Last Vital Signs Temp 99.4 F 06/19/24 20:49 Pulse 126 H 06/19/24 23:00 Resp 14 06/19/24 22:15 BP 108/75 06/19/24 22:57 Pulse Ox 93 06/19/24 23:00 O2 Del Method Nasal Cannula 06/19/24 21:55 O2 Flow Rate 2 06/19/24 21:55 06/19/24 06/19/24 06/20/24 14:59 22:59 06:59 Intake Total 100 / 100 Balance 100 / 100 Weight last 48 hrs Weight 54.431 kg Physical Exam 2 Narrative: Patient is awake and alert Currently in sinus rhythm heart rate around 110 GCS 15 Right-sided chronic weakness Patient has mild dysarthria No active focal neurodeficit Patient is stating she is at her baseline Does not walk on her own uses a walker Lower extremity no significant edema Clinically looks dehydrated Macerated malnourished sarcopenia Currently on 2 L nasal cannula S1, S2 tachycardia No active chest pain Port-A-Cath in place No signs of skin mottling, No signs of confusion Data 06/19/24 22:26 06/19/24 20:33 Micro: Microbiology 06/19/24 22:26 Blood Culture - Preliminary Blood SPECIMEN COLLECTED 06/19/24 21:28 Blood Culture - Preliminary Blood SPECIMEN COLLECTED A&P Assessment and plan (1) Lung cancer: Qualifiers: Laterality: right Lung location: lower lobe of lung Qualified Code(s): C34.31 - Malignant neoplasm of lower lobe, right bronchus or lung (2) Seizure disorder: (3) Community acquired pneumonia: Qualifiers: Laterality: right Lung location: unspecified part of lung Qualified Code(s): J18.9 - Pneumonia, unspecified organism (4) Port-A-Cath in place: (5) Hypotension: Qualifiers: Hypotension type: hypotension due to hypovolemia Qualified Code(s): E 86.1 - Hypovolemia (6) Atrial flutter: Qualifiers: Atrial flutter type: unspecified Qualified Code(s): I48.92 - Unspecified atrial flutter (7) Sepsis: (8) Pneumothorax: Plan Sepsis related to pneumonia Immunocompromise with underlying small cell lung cancer Chemotherapy today Patient received septic bolus Will keep her on vancomycin and cefepime for now Check MRSA nares Request urine culture Continue IV fluids Sepsis criteria met with tachypnea tachycardia fever at home, Small pneumothorax, repeat x-ray within 4 hours At this point no need of chest tube placement, Currently on 2 L of oxygen which is new Atrial flutter: Converted to sinus rhythm with IV fluid bolus, sepsis related atrial flutter? I would avoid putting her on anticoagulating agent full dose at this point in case her pneumothorax gets worse and she needs intervention, Hypotension: As per the patient she takes midodrine her blood pressure normally stays in 90s Never had any adrenal gland crisis/addisonian She has been giving steroids methylprednisolone 125 mg in the ER History of seizure: Brain MRI unremarkable for metastatic disease Lives at home, wheelchair dependent, lives with her father Full code GI soft diet DVT prophylaxis: Heparin Attestations 2 Medical Necessity Statement*: More than 2 midnights anticipated Diagnoses Malignant neoplasm of lower lobe of right lung C34.31 Laterality: right Lung location: lower lobe of lung Seizure disorder G40.909 Community acquired pneumonia J18.9 Laterality: right Lung location: unspecified part of lung Port-A-Cath in place Z95.828 Hypotension E86.1 Hypotension type: hypotension due to hypovolemia Atrial flutter I48.92 Atrial flutter type: unspecified Sepsis A41.9 Pneumothorax J93.9
[2024-06-20] VITALS (11 sets, daily range): BP systolic 86–107; BP diastolic 57–73; PULSE 85–111; RESP 12–22; TEMP 36.1–36.6; O2SAT 20–98; BMI 20.5
[2024-06-20 00:11] LABS: Procalcitonin 0.22 ng/mL (0-0.5)
[2024-06-20 01:08] LABS: Covid PCR NEGATIVE (Negative); Influenza A NEGATIVE (Negative); Influenza B NEGATIVE (Negative); Respiratory Syncytial Virus Ce NEGATIVE (Negative)
[2024-06-20 01:39] LABS: Thyroid Stimulating Hormone 0.71 uIU/mL (0.27-4.20)
[2024-06-20] MEDS: cefepime 2,000 mg SDV 2000 MG IVP ×2 (01:50→13:44)
[2024-06-20] MEDS: HYDROcodone-acetaminophen 7.5-325 mg Tablet 1 TAB PO ×3 (01:51→13:45)
[2024-06-20 02:21] LABS: Basophils % 0.2 %; Hematocrit 26.7 % (36-47); Lymphocytes # 0.3 10^3/uL (0.8-4.8); Lymphocytes % 2.3 %; Mean Corpuscular HGB Conc 31.1 g/dL (30-55); Mean Corpuscular Hemoglobin 29.3 pg (27-33); Mean Corpuscular Volume 94.3 fl (85-98); Mean Platelet Volume 9.6 fL (7.4-10.4); Monocytes % 0.2 %; Neutrophils # 11.71 10^3/uL (1.8-7.7); Neutrophils % 96.4 %; Nucleated Red Blood Cells % 0 %; Platelet Count 364 10^3/cmm (157-399); Red Blood Count 2.83 10^6/uL (3.85-5.65); Red Cell Distribution Width 14.6 % (12.1-15.1); White Blood Count 12.14 10^3/uL (3.29-11.43)
[2024-06-20 02:40] LABS: Troponin 5 6HR 9.88 ng/L (0-10); Troponin 5 6HR Delta 3.88001 ng/L (0-12)
[2024-06-20 02:41] LABS: Anion Gap 14.8 (5-19); Blood Urea Nitrogen 12 mg/dL (6-20); Calcium 8.2 mg/dL (8.5-10.5); Carbon Dioxide 24 mmol/L (22-29); Chloride 97 mmol/L (98-107); Creatinine Clr Calc Pharmacy 122.4538; Glomerular Filtration Rate 133.4 mL/min (90-130); Glucose 174 mg/dL (65-115); Magnesium 1.6 mg/dL (1.7-2.3); Osmolality Calculated 278 mOsm/kg (285-295); Phosphorus 3.3 mg/dL (2.5-4.5); Potassium 3.8 mmol/L (3.5-5.1); Sodium 132 mmol/L (136-145)
[2024-06-20 02:44] LABS: Slide Review Slide Review Perform
--- NOTE | 2024-06-20 03:15 | ECG_ITS ---
[facility] Date: 2024-[facility]-20 Pat Name: Lizeth Brandt Department: Room: 102 Gender: Female Staff Field Engineer: : 1980 Requested By: Love Ferrera Order Number: [id number] Phillip MD: Miguel Juarez M.D. Measurements Intervals [place] Rate: 92 P: 54 LA: 155 QRS: 65 QRSD: 92 T: 51 QT: 363 QTc: 450 Interpretive Statements SINUS RHYTHM Compared to ECG 06/20/2024 00:05:12 Sinus tachycardia no longer present T-wave abnormality no longer present Electronically Signed On 06-21-2024 21:39:09 SUSPECT ARTIST by Miguel Juarez M.D. [email or web address]
[2024-06-20 03:20] LABS: MRSA PCR OZH (swab) NOT DETECTED (Not Detecte)
[2024-06-20] MEDS: vancomycin 1,500 MG/300 ML PIGGYBACK 200 MG IV (03:43)
[2024-06-20] MEDS: levoFLOXacin 750 mg Tablet PO (05:36)
[2024-06-20] MEDS: heparin 5,000 unit/mL INJ 1 mL 5000 UNIT SUBCUT ×2 (05:36→17:57)
--- NOTE | 2024-06-20 07:00 | XRR_ITS ---
PROCEDURE INFORMATION: Exam: XR Chest Exam date and time: 06/20/2024 7:12 AM Age: 43 years old Clinical indication: Condition or disease; Lung condition and disease; Pneumothorax TECHNIQUE: Imaging protocol: Radiologic exam of the chest. Views: 1 view. COMPARISON: CT chest w con* [id number] 06/19/2024 10:45 PM FINDINGS: Tubes, catheters and devices: Infusion port enters from the right and terminates in the SVC. Lungs: See Pleural spaces finding. Pleural spaces: Moderate right pleural effusion with a micha atelectasis or infiltrate. The tiny pneumothorax visible on yesterday's CT is not clearly seen on today's study. Heart/Mediastinum: Unremarkable. No cardiomegaly. Bones/joints: Unremarkable. Other findings: No acute findings. XR/XR chest 1V portable [id number] IMPRESSION: Persistent effusion and atelectasis or infiltrate at the right lung base.
[2024-06-20] MEDS: midodrine 5 mg TABLET 2.5 MG PO ×3 (08:07→17:57)
[2024-06-20] MEDS: aspirin 81 mg EC Tablet PO (08:07)
[2024-06-20] MEDS: sennosides-docusate Tablet 1 TAB PO (08:07)
[2024-06-20] MEDS: diazePAM 5 mg Tablet PO ×2 (08:10→18:21)
--- NOTE | 2024-06-20 09:40 | PHA.VACGOAL ---
Vancomycin Goal - Goal Vancomycin Indication:: Other - Therapy Day of therpy:: Day []of [] . Actual body weight (kg): 120 lb 12.8 oz - Data Labs: WBC 12.14 10^3/uL (3.29-11.43) H 06/20/24 02:15 Corrected WBC Cancelled 06/19/24 20:33 RBC 2.83 10^6/uL (3.85-5.65) L 06/20/24 02:15 Hgb 8.30 g/dL (11.27-16.99) L 06/20/24 02:15 Hct 26.7 % (36-47) L 06/20/24 02:15 MCV 94.3 fl (85-98) 06/20/24 02:15 MCH 29.3 pg (27-33) 06/20/24 02:15 MCHC 31.1 g/dL (30-55) 06/20/24 02:15 RDW 14.6 % (12.1-15.1) 06/20/24 02:15 Sodium 132 mmol/L (136-145) L 06/20/24 02:15 Potassium 3.8 mmol/L (3.5-5.1) 06/20/24 02:15 Chloride 97 mmol/L (98-107) L 06/20/24 02:15 Carbon Dioxide 24 mmol/L (22-29) 06/20/24 02:15 Anion Gap 14.8 (5-19) 06/20/24 02:15 BUN 12 mg/dL (6-20) 06/20/24 02:15 Creatinine 0.5 mg/dL (0.5-0.9) 06/20/24 02:15 GFR Calculation 133.4 mL/min (90-130) H 06/20/24 02:15 Treatment plan:: new consult Regimen:: 1000 MG Q12H PER TELEPHARMACY 1500 MG FOR FIRST DOSE WAS GIVEN TROUGH 06/21 1400
[2024-06-20 09:52] LABS: ABG PCO2 39.1 mmHg (35-45); ABG PH Result 7.45 (7.35-7.45); Alveolar-Arterial Oxygen Gradi 12.3 mmHg (5-10); Arterial Blood Gas Hematocrit 30.9 % (37-47); Blood Gas Allen Test Pos; Blood Gas Operator Identificat BD; Blood Gas Sample Site Brachial, left; Blood Gas Sample Type Arterial; Carboxyhemoglobin 2.4 %THgb (0.4-20.1); HCO3 ABG 27.2 mmol/L (22-26); HGB O2 Sat 88.3 % (95-100); Ionized Calcium Level - ABG 1.2 mmol/L (1.1-1.4); Methemoglobin 1.1 % (0.4-1.5); Oxygen Device NC; Oxygen Saturation ABG 91.6; PO2 ABG 58.4 mmHg (80.0-100.0); PO2 FiO2 Ratio Arterial Blood 208; Total Hemoglobin 10.1 g/dL (12-16)
--- NOTE | 2024-06-20 10:47 | XRR_ITS ---
PROCEDURE INFORMATION: Exam: XR Chest Exam date and time: 06/20/2024 11:07 AM Age: 43 years old Clinical indication: Condition or disease; Lung condition and disease; Pneumothorax; Additional info: Ptx TECHNIQUE: Imaging protocol: Radiologic exam of the chest. Views: 1 view. COMPARISON: CR XR chest 1V portable [id number] 06/20/2024 7:12 AM FINDINGS: Tubes, catheters and devices: Stable infusion port. Unchanged effusion plus infiltrate on the right. Lungs: See Tubes, catheters and devices finding. Pleural spaces: The tiny pneumothorax visible on yesterday's CT is not seen on this study. Heart/Mediastinum: Unremarkable. No cardiomegaly. Bones/joints: Unremarkable. XR/XR chest 1V portable [id number] IMPRESSION: No significant change.
--- NOTE | 2024-06-20 13:06 | P.PN_ITS ---
Subjective 2 Subjective: Patient was seen this morning, she does report fatigue, does report shortness of breath, denies any chest pain, palpitations Vitals/I&O/Wt Last Vital Signs Temp 96.9 F L 06/20/24 11:42 Pulse 93 06/20/24 11:42 Resp 14 06/20/24 11:42 BP 97/68 06/20/24 11:42 Pulse Ox 97 06/20/24 07:35 O2 Del Method Nasal Cannula 06/20/24 07:35 O2 Flow Rate 2 06/19/24 21:55 06/19/24 06/20/24 06/20/24 22:59 06:59 14:59 Intake Total 100 / 100 300 / 400 1300 / 1300 Balance 100 / 100 300 / 400 1300 / 1300 Weight last 48 hrs Weight 54.794 kg Weight 54.431 kg Weight 54.431 kg Weight 54.431 kg Physical Exam 2 Const: COMMON NORMALS: no acute distress and patient oriented x3 GENERAL APPEARANCE: ill appearing and frail appearing NUTRITIONAL APPEARANCE: c achectic and thin Resp: COMMON NORMALS: normal respiratory effort, No retractions and No use of accessory muscles AUSCULTATION: crackles and wheezes Cardio: COMMON NORMALS: regular rate, regular rhythm, S1 normal heart sound present and S2 normal heart sound present RATE: regular rate RHYTHM: r egular rhythm HEART SOUNDS: S1 normal heart sound present and S2 normal heart sound present GI: COMMON NORMALS: Normal to inspection, nondistended, normoactive bowel sounds present and non-tender Extremity: COMMON NORMALS: no pedal edema Neuro: COMMON NORMALS: patient oriented x3 Psych: COMMON NORMALS: mental status grossly normal Data 06/20/24 02:15 06/20/24 02:15 Micro: Microbiology 06/19/24 22:26 Blood Culture - Preliminary Blood SPECIMEN COLLECTED 06/19/24 21:28 Blood Culture - Preliminary Blood SPECIMEN COLLECTED A&P Assessment and plan (1) Lung cancer: Qualifiers: Laterality: right Lung location: lower lobe of lung Qualified Code(s): C34.31 - Malignant neoplasm of lower lobe, right bronchus or lung (2) Seizure disorder: (3) Community acquired pneumonia: Qualifiers: Laterality: right Lung location: unspecified part of lung Qualified Code(s): J18.9 - Pneumonia, unspecified organism (4) Port-A-Cath in place: (5) Hypotension: Qualifiers: Hypotension type: hypotension due to hypovolemia Qualified Code(s): E 86.1 - Hypovolemia (6) Atrial flutter: Qualifiers: Atrial flutter type: unspecified Qualified Code(s): I48.92 - Unspecified atrial flutter (7) Sepsis: (8) Pneumothorax: Plan Sepsis related to pneumonia Immunocompromise with underlying small cell lung cancer Chemotherapy today Patient received septic bolus Continue vancomycin Continue cefepime Check MRSA nares Request urine culture Continue IV fluids Sepsis criteria met with tachypnea tachycardia fever at home, Small pneumothorax Chest x-ray this morning tiny pneumothorax visible yesterday CT is not seen on the study At this point no need of chest tube placement, Currently on 2 L of oxygen which is new Atrial flutter: Converted to sinus rhythm with IV fluid bolus, sepsis related atrial flutter? Continue to monitor Hypotension: As per the patient she takes midodrine her blood pressure normally stays in 90s Never had any adrenal gland crisis/addisonian She has been giving steroids methylprednisolone 125 mg in the ER History of seizure: Brain MRI unremarkable for metastatic disease Lives at home, wheelchair dependent, lives with her father Deconditioning, protein, malnutrition, -Secondary to cancer Full code GI soft diet DVT prophylaxis: Heparin Attestations 2 Medical Necessity Statement*: Patient requires hospitalization for sepsis secondary to pneumonia Coding Level of Care Code Acute Code for Chg Fwd Diagnoses Malignant neoplasm of lower lobe of right lung C34.31 Laterality: right Lung location: lower lobe of lung Seizure disorder G40.909 Community acquired pneumonia J18.9 Laterality: right Lung location: unspecified part of lung Port-A-Cath in place Z95.828 Hypotension E86.1 Hypotension type: hypotension due to hypovolemia Atrial flutter I48.92 Atrial flutter type: unspecified Sepsis A41.9 Pneumothorax J93.9
--- NOTE | 2024-06-20 13:41 | ECG_ITS ---
[facility] Test Date: 2024-06-20 Pat Name: Lizeth Brandt Department: Room: 102 Gender: Female Student Dean: : 1980 Requested By: Francisco Rudolph Order Number: [id number] Phillip MD: Miguel Juarez M.D. Measurements Intervals [place] Rate: 100 P: 61 ME: 166 QRS: 71 QRSD: 93 T: 5 QT: 333 QTc: 430 Interpretive Statements SINUS TACHYCARDIA NONSPECIFIC T-WAVE ABNORMALITY ABNORMAL RHYTHM ECG Compared to ECG 06/20/2024 03:15:22 T-wave abnormality now present Sinus rhythm no longer present Electronically Signed On 06-20-2024 21:43:22 MARBLE SETTER HELPER by Miguel Juarez M.D. [email or web address]
--- NOTE | 2024-06-20 14:19 | PC.OT ---
Jose attempted. Pt stated that she is very weak and that the nurses told her that therapy would start tomorrow, and that is what she would like to do.
[2024-06-20] MEDS: VANCOMYCIN ADD-Vantage 1,000 MG in 0.9% NaCl ADD-Vantage 250 ML 250 MG IV (16:40)
[2024-06-21] VITALS (7 sets, daily range): BP systolic 97–108; BP diastolic 59–80; PULSE 93–131; RESP 8–20; TEMP 36.3–37.1; O2SAT 93–99; BMI 20.7
[2024-06-21] MEDS: cefepime 2,000 mg SDV 2000 MG IVP ×2 (03:18→15:39)
[2024-06-21] MEDS: VANCOMYCIN ADD-Vantage 1,000 MG in 0.9% NaCl ADD-Vantage 250 ML 250 MG IV (03:18)
[2024-06-21] MEDS: heparin 5,000 unit/mL INJ 1 mL 5000 UNIT SUBCUT ×2 (05:43→17:47)
[2024-06-21] MEDS: levoFLOXacin 750 mg Tablet PO (05:43)
[2024-06-21] MEDS: sennosides-docusate Tablet 1 TAB PO (07:15)
[2024-06-21] MEDS: aspirin 81 mg EC Tablet PO (07:15)
[2024-06-21] MEDS: midodrine 5 mg TABLET 2.5 MG PO ×3 (07:15→17:47)
--- NOTE | 2024-06-21 08:45 | XRR_ITS ---
PROCEDURE INFORMATION: Exam: XR Chest Exam date and time: 06/21/2024 4:59 PM Age: 43 years old Clinical indication: Shortness of breath; Prior surgery; Surgery date: 6+ months; Surgery type: RT port placement; Patient HX: SOB; Lung cancer; Weakness TECHNIQUE: Imaging protocol: Radiologic exam of the chest. Views: 1 view. COMPARISON: CR XR chest 1V portable [id number] 06/20/2024 11:07 AM FINDINGS: Tubes, catheters and devices: Right-sided Port-A-Cath. Lungs: Moderate to large right pleural effusion with right mid to lower lung field airspace infiltrates similar to prior exam. Pleural spaces: See Lungs finding. Heart/Mediastinum: Unremarkable. No cardiomegaly. Bones/joints: Unremarkable. XR/XR chest 1V portable [id number] IMPRESSION: 1. Moderate to large right pleural effusion with right mid to lower lung field airspace infiltrates similar to prior exam. 2. Right-sided Port-A-Cath.
[2024-06-21 10:02] LABS: Basophils % 0.3 %; Hematocrit 27.4 % (36-47); Lymphocytes # 1.5 10^3/uL (0.8-4.8); Lymphocytes % 21.1 %; Mean Corpuscular Hemoglobin 28.9 pg (27-33); Mean Corpuscular Volume 93.2 fl (85-98); Mean Platelet Volume 9.4 fL (7.4-10.4); Monocytes % 0.1 %; Neutrophils # 5.63 10^3/uL (1.8-7.7); Neutrophils % 77.1 %; Nucleated Red Blood Cells % 0 %; Platelet Count 443 10^3/cmm (157-399); Red Blood Count 2.94 10^6/uL (3.85-5.65); Red Cell Distribution Width 14.3 % (12.1-15.1)
[2024-06-21] MEDS: ipratropium-albuterol 3 mL Neb INHALATION (10:18)
[2024-06-21 10:19] LABS: Alanine Aminotransferase 16 U/L (0-33); Albumin Level 3.4 g/dL (3.5-5.2); Alkaline Phosphatase 203 U/L (35-105); Aspartate Amino Transferase 16 U/L (0-32); Chloride 97 mmol/L (98-107); Glucose 184 mg/dL (65-115); Potassium 3.3 mmol/L (3.5-5.1); Sodium 135 mmol/L (136-145)
[2024-06-21 10:39] LABS: Anion Gap 15.1 (5-19); Blood Urea Nitrogen 12 mg/dL (6-20); Calcium 8.9 mg/dL (8.5-10.5); Carbon Dioxide 27 mmol/L (22-29); Creatinine Clr Calc Pharmacy 153.4743; Globulin 3.3 g/dL (1.3-4.6); Glomerular Filtration Rate 172.6 mL/min (90-130); Osmolality Calculated 283 mOsm/kg (285-295); Total Bilirubin 0.2 mg/dL (0.15-1.2); Total Protein 6.7 g/dL (6.6-8.7)
[2024-06-21] MEDS: lactulose oral liq 20 gm/30 mL UDC PO (11:34)
[2024-06-21] MEDS: potassium chloride ER 20 mEq Tablet 40 MEQ PO (11:34)
[2024-06-21] MEDS: VANCOMYCIN ADD-Vantage 750 MG in 0.9% NaCl ADD-Vantage 250 ML 250 MG IV ×2 (11:34→20:40)
--- NOTE | 2024-06-21 12:42 | P.PN_ITS ---
Subjective 2 Subjective: Patient was seen this morning, she complains of fatigue, malaise, generalized weakness, does report a poor appetite, denies any nausea, no vomiting Vitals/I&O/Wt Last Vital Signs Temp 97.8 F 06/21/24 12:00 Pulse 110 H 06/21/24 12:00 Resp 8 L 06/21/24 12:00 BP 100/72 06/21/24 12:00 Pulse Ox 98 06/21/24 12:00 O2 Del Method Nasal Cannula 06/21/24 12:00 O2 Flow Rate 2 06/21/24 10:22 06/20/24 06/21/24 06/21/24 22:59 06:59 14:59 Intake Total 250 / 1550 250 / 1800 250 / 250 Output Total 325 / 325 Balance 250 / 1550 250 / 1800 -75 / -75 Weight last 48 hrs Weight 54.794 kg Weight 54.794 kg Weight 54.431 kg Weight 54.431 kg Weight 54.431 kg Physical Exam 2 Const: COMMON NORMALS: no acute distress and patient oriented x3 GENERAL APPEARANCE: ill appearing and frail appearing Resp: COMMON NORMALS: normal respiratory effort, No retractions and No use of accessory muscles AUSCULTATION: wheezes Cardio: COMMON NORMALS: regular rate, regular rhythm, S1 normal heart sound present and S2 normal heart sound present RATE: regular rate RHYTHM: r egular rhythm HEART SOUNDS: S1 normal heart sound present and S2 normal heart sound present GI: COMMON NORMALS: Normal to inspection, nondistended, normoactive bowel sounds present and non-tender Extremity: COMMON NORMALS: no calf tenderness and no pedal edema Neuro: COMMON NORMALS: patient oriented x3 Psych: COMMON NORMALS: mental status grossly normal Data 06/21/24 09:54 06/21/24 09:54 Micro: Microbiology 06/19/24 22:26 Blood Culture - Preliminary Blood NEGATIVE TO DATE 06/19/24 21:28 Blood Culture - Preliminary Blood NEGATIVE TO DATE A&P Assessment and plan (1) Lung cancer: Qualifiers: Laterality: right Lung location: lower lobe of lung Qualified Code(s): C34.31 - Malignant neoplasm of lower lobe, right bronchus or lung (2) Seizure disorder: (3) Community acquired pneumonia: Qualifiers: Laterality: right Lung location: unspecified part of lung Qualified Code(s): J18.9 - Pneumonia, unspecified organism (4) Port-A-Cath in place: (5) Hypotension: Qualifiers: Hypotension type: hypotension due to hypovolemia Qualified Code(s): E 86.1 - Hypovolemia (6) Atrial flutter: Qualifiers: Atrial flutter type: unspecified Qualified Code(s): I48.92 - Unspecified atrial flutter (7) Sepsis: (8) Pneumothorax: Plan Sepsis related to pneumonia Immunocompromised state with underlying small cell lung cancer Chemotherapy today Patient received septic bolus Continue vancomycin Continue cefepime Continue Levaquin Check MRSA nares Request urine culture Continue IV fluids Sepsis criteria met with tachypnea tachycardia fever at home, Small pneumothorax will repeat chest x-ray today At this point no need of chest tube placement, Currently on 2 L of oxygen which is new Atrial flutter: Converted to sinus rhythm with IV fluid bolus, sepsis related atrial flutter? Continue to monitor Hypotension: As per the patient she takes midodrine her blood pressure normally stays in 90s Never had any adrenal gland crisis/addisonian She has been giving steroids methylprednisolone 125 mg in the ER History of seizure: Brain MRI unremarkable for metastatic disease Lives at home, wheelchair dependent, lives with her father Deconditioning, protein, malnutrition, cancer cachexia -Secondary to cancer Full code GI soft diet DVT prophylaxis: Heparin Attestations 2 Medical Necessity Statement*: Patient requires hospitalization for sepsis secondary to pneumonia, immunocompromise state Diagnoses Malignant neoplasm of lower lobe of right lung C34.31 Laterality: right Lung location: lower lobe of lung Seizure disorder G40.909 Community acquired pneumonia J18.9 Laterality: right Lung location: unspecified part of lung Port-A-Cath in place Z95.828 Hypotension E86.1 Hypotension type: hypotension due to hypovolemia Atrial flutter I48.92 Atrial flutter type: unspecified Sepsis A41.9 Pneumothorax J93.9
[2024-06-21] MEDS: HYDROcodone-acetaminophen 7.5-325 mg Tablet 1 TAB PO ×2 (15:38→20:44)
[2024-06-21] MEDS: Fleet Enema 133 mL Enema PR (18:17)
[2024-06-21] MEDS: diazePAM 5 mg Tablet PO (18:17)
[2024-06-22] VITALS (148 sets, daily range): BP systolic 95–111; BP diastolic 59–79; PULSE 95–137; RESP 7–30; TEMP 36.4–36.7; O2SAT 86–100
[2024-06-22] MEDS: cefepime 2,000 mg SDV 2000 MG IVP ×2 (02:23→15:42)
[2024-06-22] MEDS: HYDROcodone-acetaminophen 7.5-325 mg Tablet 1 TAB PO ×3 (02:43→20:59)
[2024-06-22] MEDS: VANCOMYCIN ADD-Vantage 750 MG in 0.9% NaCl ADD-Vantage 250 ML 250 MG IV ×3 (03:56→21:00)
[2024-06-22] MEDS: heparin 5,000 unit/mL INJ 1 mL 5000 UNIT SUBCUT ×2 (05:24→17:59)
[2024-06-22] MEDS: levoFLOXacin 750 mg Tablet PO (05:25)
[2024-06-22 06:28] LABS: Basophils # 0.1 10^3/uL (0.0-0.1); Basophils % 1.2 %; Hematocrit 28.8 % (36-47); Lymphocytes # 0.8 10^3/uL (0.8-4.8); Lymphocytes % 19.3 %; Mean Corpuscular HGB Conc 31.3 g/dL (30-55); Mean Corpuscular Hemoglobin 29.4 pg (27-33); Mean Corpuscular Volume 94.1 fl (85-98); Mean Platelet Volume 10.1 fL (7.4-10.4); Monocytes % 0.2 %; Neutrophils % 74.7 %; Nucleated Red Blood Cells % 0 %; Platelet Count 283 10^3/cmm (157-399); Red Blood Count 3.06 10^6/uL (3.85-5.65); Red Cell Distribution Width 14.5 % (12.1-15.1); White Blood Count 4.15 10^3/uL (3.29-11.43)
[2024-06-22 06:39] LABS: Alanine Aminotransferase 12 U/L (0-33); Albumin Level 3.1 g/dL (3.5-5.2); Alkaline Phosphatase 180 U/L (35-105); Anion Gap 24.4 (5-19); Aspartate Amino Transferase 11 U/L (0-32); Blood Urea Nitrogen 10 mg/dL (6-20); Carbon Dioxide 22 mmol/L (22-29); Chloride 94 mmol/L (98-107); Creatinine Clr Calc Pharmacy 153.4743; Globulin 2.3 g/dL (1.3-4.6); Glomerular Filtration Rate 172.6 mL/min (90-130); Glucose 87 mg/dL (65-115); Osmolality Calculated 282 mOsm/kg (285-295); Potassium 3.4 mmol/L (3.5-5.1); Sodium 137 mmol/L (136-145); Total Bilirubin 0.3 mg/dL (0.15-1.2); Total Protein 5.4 g/dL (6.6-8.7)
[2024-06-22] MEDS: aspirin 81 mg EC Tablet PO (08:22)
[2024-06-22] MEDS: midodrine 5 mg TABLET 2.5 MG PO ×3 (08:22→17:58)
[2024-06-22] MEDS: FUROsemide 10 mg/mL SDV 2mL 20 MG IVP (10:39)
[2024-06-22] MEDS: albumin 25 G/100 ML BAG 60 G IV (10:39)
[2024-06-22] MEDS: diazePAM 5 mg Tablet PO (10:49)
--- NOTE | 2024-06-22 13:00 | P.PN_ITS ---
Subjective 2 Subjective: Patient was seen this morning, she reports a large bowel movement yesterday, no fevers, no chills, does report generalized weakness, no nausea, no vomiting, no abdominal pain Vitals/I&O/Wt Last Vital Signs Temp 97.5 F L 06/22/24 07:40 Pulse 104 H 06/22/24 11:25 Resp 14 06/22/24 11:25 BP 111/79 06/22/24 11:25 Pulse Ox 99 06/22/24 11:25 O2 Del Method Nasal Cannula 06/22/24 08:47 O2 Flow Rate 2 06/22/24 08:47 06/21/24 06/22/24 06/22/24 22:59 06:59 14:59 Intake Total 610 / 860 250 / 1110 100 / 100 Output Total 301 / 626 200 / 826 700 / 700 Balance 309 / 234 50 / 284 -600 / -600 Weight last 48 hrs Weight 54.794 kg Weight 54.794 kg Physical Exam 2 Const: COMMON NORMALS: no acute distress and patient oriented x3 OTHER: Ill-appearing, frail appearing Resp: COMMON NORMALS: normal respiratory effort, No retractions, No use of accessory muscles and clear to auscultation bilaterally AUSCULTATION: clear to auscultation bilaterally Cardio: COMMON NORMALS: regular rate, regular rhythm, S1 normal heart sound present and S2 normal heart sound present RATE: regular rate RHYTHM: r egular rhythm HEART SOUNDS: S1 normal heart sound present and S2 normal heart sound present GI: COMMON NORMALS: Normal to inspection, nondistended, normoactive bowel sounds present and non-tender Extremity: COMMON NORMALS: no pedal edema Neuro: COMMON NORMALS: patient oriented x3 Psych: COMMON NORMALS: mental status grossly normal Data 06/22/24 05:45 06/22/24 05:45 Micro: Microbiology 06/20/24 16:16 Gram Stain - Final Sputum - Expectorated Sputum A&P Assessment and plan (1) Lung cancer: Qualifiers: Laterality: right Lung location: lower lobe of lung Qualified Code(s): C34.31 - Malignant neoplasm of lower lobe, right bronchus or lung (2) Seizure disorder: (3) Community acquired pneumonia: Qualifiers: Laterality: right Lung location: unspecified part of lung Qualified Code(s): J18.9 - Pneumonia, unspecified organism (4) Port-A-Cath in place: (5) Hypotension: Qualifiers: Hypotension type: hypotension due to hypovolemia Qualified Code(s): E 86.1 - Hypovolemia (6) Atrial flutter: Qualifiers: Atrial flutter type: unspecified Qualified Code(s): I48.92 - Unspecified atrial flutter (7) Sepsis: (8) Pneumothorax: Plan Sepsis related to pneumonia, improving Immunocompromised state with underlying small cell lung cancer Chemotherapy today Patient received septic bolus Continue vancomycin Continue cefepime Continue Levaquin Sepsis criteria met with tachypnea tachycardia fever at home, Small pneumothorax Monitor chest x-ray At this point no need of chest tube placement, Currently on 2 L of oxygen which is new Atrial flutter: Converted to sinus rhythm with IV fluid bolus, sepsis related atrial flutter? Continue to monitor Hypotension: As per the patient she takes midodrine her blood pressure normally stays in 90s Never had any adrenal gland crisis/addisonian She has been giving steroids methylprednisolone 125 mg in the ER History of seizure: Brain MRI unremarkable for metastatic disease Lives at home, wheelchair dependent, lives with her father Deconditioning, protein, malnutrition, cancer cachexia -Secondary to cancer Full code GI soft diet DVT prophylaxis: Heparin Patient has evidence of fluid overload with dose of Lasix, continue IV antibiotics Attestations 2 Medical Necessity Statement*: Patient requires hospitalization for sepsis secondary to pneumonia, requiring IV antibiotics Diagnoses Malignant neoplasm of lower lobe of right lung C34.31 Laterality: right Lung location: lower lobe of lung Seizure disorder G40.909 Community acquired pneumonia J18.9 Laterality: right Lung location: unspecified part of lung Port-A-Cath in place Z95.828 Hypotension E86.1 Hypotension type: hypotension due to hypovolemia Atrial flutter I48.92 Atrial flutter type: unspecified Sepsis A41.9 Pneumothorax J93.9
[2024-06-22] MEDS: zolpidem 5 mg Tablet PO (22:07)
[2024-06-23] VITALS (45 sets, daily range): BP systolic 93–115; BP diastolic 62–72; PULSE 97–124; RESP 12–30; TEMP 36.6–36.7; O2SAT 89–96
[2024-06-23] MEDS: cefepime 2,000 mg SDV 2000 MG IVP ×2 (02:46→13:06)
[2024-06-23 04:09] LABS: Alanine Aminotransferase 27 U/L (0-33); Albumin Level 3.9 g/dL (3.5-5.2); Alkaline Phosphatase 259 U/L (35-105); Anion Gap 13.6 (5-19); Aspartate Amino Transferase 33 U/L (0-32); Blood Urea Nitrogen 11 mg/dL (6-20); Calcium 9.4 mg/dL (8.5-10.5); Carbon Dioxide 32 mmol/L (22-29); Chloride 94 mmol/L (98-107); Creatinine Clr Calc Pharmacy 102.3162; Globulin 3.3 g/dL (1.3-4.6); Glomerular Filtration Rate 108.1 mL/min (90-130); Glucose 97 mg/dL (65-115); Osmolality Calculated 281 mOsm/kg (285-295); Potassium 3.6 mmol/L (3.5-5.1); Sodium 136 mmol/L (136-145); Total Bilirubin 0.9 mg/dL (0.15-1.2); Total Protein 7.2 g/dL (6.6-8.7)
[2024-06-23 05:22] LABS: Basophils # 0.1 10^3/uL (0.0-0.1); Basophils % 1.4 %; Hematocrit 25.8 % (36-47); Mean Corpuscular Volume 93.5 fl (85-98); Mean Platelet Volume 9.7 fL (7.4-10.4); Monocytes % 0.8 %; Neutrophils # 2.29 10^3/uL (1.8-7.7); Neutrophils % 64.6 %; Nucleated Red Blood Cells % 0 %; Platelet Count 396 10^3/cmm (157-399); Red Blood Count 2.76 10^6/uL (3.85-5.65); Red Cell Distribution Width 14.1 % (12.1-15.1); White Blood Count 3.55 10^3/uL (3.29-11.43)
[2024-06-23 05:25] LABS: Slide Review Slide Review Perform
[2024-06-23] MEDS: levoFLOXacin 750 mg Tablet PO (05:34)
[2024-06-23] MEDS: VANCOMYCIN ADD-Vantage 750 MG in 0.9% NaCl ADD-Vantage 250 ML 250 MG IV ×2 (05:34→12:56)
[2024-06-23] MEDS: heparin 5,000 unit/mL INJ 1 mL 5000 UNIT SUBCUT ×2 (05:34→18:15)
[2024-06-23] MEDS: HYDROcodone-acetaminophen 7.5-325 mg Tablet 1 TAB PO ×3 (08:04→20:45)
[2024-06-23] MEDS: aspirin 81 mg EC Tablet PO (08:04)
[2024-06-23] MEDS: midodrine 5 mg TABLET 2.5 MG PO ×3 (08:04→18:14)
[2024-06-23] MEDS: diazePAM 5 mg Tablet PO (13:06)
--- NOTE | 2024-06-23 13:09 | P.PN_ITS ---
Vitals/I&O/Wt Last Vital Signs Temp 98.0 F 06/23/24 11:41 Pulse 98 06/23/24 11:41 Resp 14 06/23/24 11:41 BP 93/64 06/23/24 11:41 Pulse Ox 96 06/23/24 11:41 O2 Del Method Room Air 06/23/24 11:41 O2 Flow Rate 2 06/22/24 08:47 06/22/24 06/23/24 06/23/24 22:59 06:59 14:59 Intake Total 250 / 600 250 / 850 240 / 240 Output Total 1700 / 2400 0 / 2400 Balance -1450 / -1800 250 / -1550 240 / 240 Weight last 48 hrs Weight 57.198 kg Weight 54.794 kg Physical Exam 2 Const: COMMON NORMALS: no acute distress and patient oriented x3 Resp: COMMON NORMALS: normal respiratory effort, No retractions, No use of accessory muscles and clear to auscultation bilaterally AUSCULTATION: clear to auscultation bilaterally Cardio: COMMON NORMALS: regular rate, regular rhythm, S1 normal heart sound present and S2 normal heart sound present RATE: regular rate RHYTHM: r egular rhythm HEART SOUNDS: S1 normal heart sound present and S2 normal heart sound present GI: COMMON NORMALS: Normal to inspection, nondistended, normoactive bowel sounds present and non-tender Extremity: COMMON NORMALS: no pedal edema Neuro: COMMON NORMALS: patient oriented x3 Psych: COMMON NORMALS: mental status grossly normal Data 06/23/24 02:48 06/23/24 02:48 Micro: Microbiology 06/20/24 16:16 Gram Stain - Final Sputum - Expectorated Sputum Sputum Culture - Final A&P Assessment and plan (1) Lung cancer: Qualifiers: Laterality: right Lung location: lower lobe of lung Qualified Code(s): C34.31 - Malignant neoplasm of lower lobe, right bronchus or lung (2) Seizure disorder: (3) Community acquired pneumonia: Qualifiers: Laterality: right Lung location: unspecified part of lung Qualified Code(s): J18.9 - Pneumonia, unspecified organism (4) Port-A-Cath in place: (5) Hypotension: Qualifiers: Hypotension type: hypotension due to hypovolemia Qualified Code(s): E 86.1 - Hypovolemia (6) Atrial flutter: Qualifiers: Atrial flutter type: unspecified Qualified Code(s): I48.92 - Unspecified atrial flutter (7) Sepsis: (8) Pneumothorax: Plan Sepsis related to pneumonia, improving 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 Full code GI soft diet DVT prophylaxis: Heparin Patient has evidence of fluid overload with dose of Lasix, continue IV antibiotics, monitor right pleural effusion, monitor as patient is relatively asymptomatic Attestations 2 Medical Necessity Statement*: Patient requires hospitalization for sepsis related to pneumonia, de-escalate to Levaquin Diagnoses Malignant neoplasm of lower lobe of right lung C34.31 Laterality: right Lung location: lower lobe of lung Seizure disorder G40.909 Community acquired pneumonia J18.9 Laterality: right Lung location: unspecified part of lung Port-A-Cath in place Z95.828 Hypotension E86.1 Hypotension type: hypotension due to hypovolemia Atrial flutter I48.92 Atrial flutter type: unspecified Sepsis A41.9 Pneumothorax J93.9
[2024-06-23] MEDS: zolpidem 5 mg Tablet PO (22:19)
[2024-06-24] VITALS (69 sets, daily range): BP systolic 92–112; BP diastolic 61–81; PULSE 94–111; RESP 7–22; TEMP 36–37.1; O2SAT 93–95
[2024-06-24 03:25] LABS: Basophils % 1.1 %; Hematocrit 24.2 % (36-47); Lymphocytes # 1.1 10^3/uL (0.8-4.8); Lymphocytes % 40.4 %; Mean Corpuscular HGB Conc 31.8 g/dL (30-55); Mean Corpuscular Hemoglobin 30.3 pg (27-33); Mean Corpuscular Volume 95.3 fl (85-98); Mean Platelet Volume 9.8 fL (7.4-10.4); Monocytes % 0.8 %; Neutrophils # 1.47 10^3/uL (1.8-7.7); Neutrophils % 55.4 %; Nucleated Red Blood Cells % 0 %; Platelet Count 308 10^3/cmm (157-399); Red Blood Count 2.54 10^6/uL (3.85-5.65); White Blood Count 2.65 10^3/uL (3.29-11.43)
[2024-06-24 03:58] LABS: Alanine Aminotransferase 26 U/L (0-33); Albumin Level 3.6 g/dL (3.5-5.2); Alkaline Phosphatase 240 U/L (35-105); Anion Gap 15.5 (5-19); Aspartate Amino Transferase 25 U/L (0-32); Blood Urea Nitrogen 16 mg/dL (6-20); Calcium 9.2 mg/dL (8.5-10.5); Carbon Dioxide 30 mmol/L (22-29); Chloride 96 mmol/L (98-107); Creatinine Clr Calc Pharmacy 124.9364; Globulin 3.4 g/dL (1.3-4.6); Glomerular Filtration Rate 133.4 mL/min (90-130); Glucose 98 mg/dL (65-115); Osmolality Calculated 287 mOsm/kg (285-295); Potassium 3.5 mmol/L (3.5-5.1); Sodium 138 mmol/L (136-145); Total Bilirubin 0.4 mg/dL (0.15-1.2)
[2024-06-24 04:05] LABS: Slide Review Slide Review Perform
[2024-06-24] MEDS: levoFLOXacin 750 mg Tablet PO (05:59)
[2024-06-24] MEDS: heparin 5,000 unit/mL INJ 1 mL 5000 UNIT SUBCUT ×2 (06:00→17:50)
[2024-06-24 08:33] LABS: Ferritin 846 ng/mL (15-150); Iron 156 ug/dL (37-145); Percent Saturation 62.1 % (20-50); Total Iron Binding Capacity 251 mcg/dl; Unsaturated Iron Binding 95 ug/dL (112-347)
[2024-06-24] MEDS: midodrine 5 mg TABLET 2.5 MG PO ×3 (09:19→17:50)
[2024-06-24] MEDS: polyethylene glycol 3350 Pkt 17 gm PO (09:19)
[2024-06-24] MEDS: sennosides-docusate Tablet 1 TAB PO (09:19)
[2024-06-24] MEDS: lactulose oral liq 20 gm/30 mL UDC PO (09:19)
[2024-06-24] MEDS: diazePAM 5 mg Tablet PO (09:19)
[2024-06-24] MEDS: aspirin 81 mg EC Tablet PO (09:19)
[2024-06-24] MEDS: levETIRAcetam 500 mg Tablet PO (09:20)
[2024-06-24] MEDS: HYDROcodone-acetaminophen 7.5-325 mg Tablet 1 TAB PO ×3 (09:24→21:47)
--- NOTE | 2024-06-24 13:04 | P.PN_ITS ---
Subjective 2 Subjective: Patient was seen this morning, she is sitting up in a chair, has no complaints no fevers, no chills, no cough she does complain of generalized weakness, fatigue, malaise, no nausea, no vomiting Vitals/I&O/Wt Last Vital Signs Temp 98.6 F 06/24/24 12:08 Pulse 101 H 06/24/24 12:08 Resp 14 06/24/24 12:08 BP 97/68 06/24/24 12:08 Pulse Ox 95 06/24/24 12:08 O2 Del Method Room Air 06/24/24 10:00 O2 Flow Rate 2 06/22/24 08:47 06/23/24 06/24/24 06/24/24 22:59 06:59 14:59 Intake Total 240 / 730 115 / 115 Output Total 550 / 550 300 / 300 Balance -310 / 180 -185 / -185 Weight last 48 hrs Weight 56.109 kg Weight 57.198 kg Physical Exam 2 Const: COMMON NORMALS: no acute distress and patient oriented x3 Resp: COMMON NORMALS: normal respiratory effort, No retractions, No use of accessory muscles and clear to auscultation bilaterally AUSCULTATION: clear to auscultation bilaterally Cardio: COMMON NORMALS: regular rate, regular rhythm, S1 normal heart sound present and S2 normal heart sound present RATE: regular rate RHYTHM: r egular rhythm HEART SOUNDS: S1 normal heart sound present and S2 normal heart sound present GI: COMMON NORMALS: Normal to inspection, nondistended, normoactive bowel sounds present and non-tender Extremity: COMMON NORMALS: no pedal edema Neuro: COMMON NORMALS: patient oriented x3 Psych: COMMON NORMALS: mental status grossly normal Data 06/24/24 02:21 06/24/24 02:21 Micro: Microbiology 06/20/24 16:16 Gram Stain - Final Sputum - Expectorated Sputum Sputum Culture - Final A&P Assessment and plan (1) Lung cancer: Qualifiers: Laterality: right Lung location: lower lobe of lung Qualified Code(s): C34.31 - Malignant neoplasm of lower lobe, right bronchus or lung (2) Seizure disorder: (3) Community acquired pneumonia: Qualifiers: Laterality: right Lung location: unspecified part of lung Qualified Code(s): J18.9 - Pneumonia, unspecified organism (4) Port-A-Cath in place: (5) Hypotension: Qualifiers: Hypotension type: hypotension due to hypovolemia Qualified Code(s): E 86.1 - Hypovolemia (6) Atrial flutter: Qualifiers: Atrial flutter type: unspecified Qualified Code(s): I48.92 - Unspecified atrial flutter (7) Sepsis: (8) Pneumothorax: Plan Sepsis related to pneumonia, improving 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 Acute anemia, transfuse 1 unit PRBC Full code GI soft diet DVT prophylaxis: Heparin plan for today, transfuse 1 unit PRBC, continue antibiotics Attestations 2 Medical Necessity Statement*: Patient requires hospitalization for acute anemia, sepsis related to pneumonia Diagnoses Malignant neoplasm of lower lobe of right lung C34.31 Laterality: right Lung location: lower lobe of lung Seizure disorder G40.909 Community acquired pneumonia J18.9 Laterality: right Lung location: unspecified part of lung Port-A-Cath in place Z95.828 Hypotension E86.1 Hypotension type: hypotension due to hypovolemia Atrial flutter I48.92 Atrial flutter type: unspecified Sepsis A41.9 Pneumothorax J93.9
[2024-06-24] MEDS: zolpidem 5 mg Tablet PO (23:19)
[2024-06-25] VITALS (11 sets, daily range): BP systolic 95–115; BP diastolic 61–82; PULSE 97–111; RESP 12–22; TEMP 36.5–37; O2SAT 92–100
[2024-06-25 03:57] LABS: Hematocrit 26.7 % (36-47); Lymphocytes % 48.3 %; Mean Corpuscular HGB Conc 32.2 g/dL (30-55); Mean Corpuscular Hemoglobin 29.9 pg (27-33); Mean Corpuscular Volume 92.7 fl (85-98); Mean Platelet Volume 9.8 fL (7.4-10.4); Monocytes % 1.5 %; Neutrophils % 48.2 %; Nucleated Red Blood Cells % 0 %; Platelet Count 259 10^3/cmm (157-399); Red Blood Count 2.88 10^6/uL (3.85-5.65); Red Cell Distribution Width 14.8 % (12.1-15.1); White Blood Count 2.01 10^3/uL (3.29-11.43)
[2024-06-25 04:31] LABS: Slide Review Slide Review Perform
[2024-06-25 04:32] LABS: Neutrophils # 0.97 10^3/uL (1.8-7.7)
[2024-06-25] MEDS: levoFLOXacin 750 mg Tablet PO (06:36)
[2024-06-25] MEDS: heparin 5,000 unit/mL INJ 1 mL 5000 UNIT SUBCUT ×2 (06:37→17:59)
[2024-06-25] MEDS: HYDROcodone-acetaminophen 7.5-325 mg Tablet 1 TAB PO ×3 (06:37→20:01)
[2024-06-25] MEDS: sennosides-docusate Tablet 1 TAB PO (09:03)
[2024-06-25] MEDS: lactulose oral liq 20 gm/30 mL UDC PO (09:03)
[2024-06-25] MEDS: acetaminophen 500 mg Tablet PO (09:03)
[2024-06-25] MEDS: midodrine 5 mg TABLET 2.5 MG PO ×3 (09:03→18:00)
[2024-06-25] MEDS: diazePAM 5 mg Tablet PO ×2 (09:03→18:04)
[2024-06-25] MEDS: aspirin 81 mg EC Tablet PO (09:05)
--- NOTE | 2024-06-25 14:58 | P.PN_ITS ---
Subjective 2 Subjective: Patient was seen this morning, she is sitting up to the side of the bed, alert oriented x 3, follow commands, no fevers, chills, cough discussed her neutropenia likely secondary to chemotherapy we will continue to monitor, she is on Levaquin discussed her right pleural effusion she denies any shortness of breath or coughing continue to monitor Vitals/I&O/Wt Last Vital Signs Temp 97.9 F 06/25/24 12:00 Pulse 103 H 06/25/24 14:00 Resp 18 06/25/24 12:00 BP 114/80 06/25/24 12:00 Pulse Ox 94 06/25/24 12:00 O2 Del Method Room Air 06/25/24 12:00 O2 Flow Rate 2 06/22/24 08:47 06/24/24 06/25/24 06/25/24 22:59 06:59 14:59 Intake Total 50 / 515 440 / 955 Output Total 500 / 800 350 / 1150 Balance -450 / -285 90 / -195 Weight last 48 hrs Weight 56.109 kg Weight 56.109 kg Physical Exam 2 Const: COMMON NORMALS: no acute distress and patient oriented x3 Resp: COMMON NORMALS: normal respiratory effort, No retractions, No use of accessory muscles and clear to auscultation bilaterally AUSCULTATION: clear to auscultation bilaterally Cardio: COMMON NORMALS: regular rate, regular rhythm, S1 normal heart sound present and S2 normal heart sound present RATE: regular rate RHYTHM: r egular rhythm HEART SOUNDS: S1 normal heart sound present and S2 normal heart sound present GI: COMMON NORMALS: Normal to inspection, nondistended, normoactive bowel sounds present and non-tender Extremity: COMMON NORMALS: no pedal edema Neuro: COMMON NORMALS: patient oriented x3 Psych: COMMON NORMALS: mental status grossly normal Data 06/25/24 02:51 06/24/24 02:21 Micro: Microbiology 06/19/24 22:26 Blood Culture - Final Blood NO GROWTH AFTER 5 DAYS 06/19/24 21:28 Blood Culture - Final Blood NO GROWTH AFTER 5 DAYS A&P Assessment and plan (1) Lung cancer: Qualifiers: Laterality: right Lung location: lower lobe of lung Qualified Code(s): C34.31 - Malignant neoplasm of lower lobe, right bronchus or lung (2) Seizure disorder: (3) Community acquired pneumonia: Qualifiers: Laterality: right Lung location: unspecified part of lung Qualified Code(s): J18.9 - Pneumonia, unspecified organism (4) Port-A-Cath in place: (5) Hypotension: Qualifiers: Hypotension type: hypotension due to hypovolemia Qualified Code(s): E 86.1 - Hypovolemia (6) Atrial flutter: Qualifiers: Atrial flutter type: unspecified Qualified Code(s): I48.92 - Unspecified atrial flutter (7) Sepsis: (8) Pneumothorax: Plan Sepsis related to pneumonia, improving 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828 Hypotension E86.1 Hypotension type: hypotension due to hypovolemia Atrial flutter I48.92 Atrial flutter type: unspecified Sepsis A41.9 Pneumothorax J93.9
[2024-06-25] MEDS: zolpidem 5 mg Tablet PO (21:40)
[2024-06-26] VITALS (10 sets, daily range): BP systolic 97–126; BP diastolic 62–79; PULSE 95–114; RESP 9–16; TEMP 36.5–36.9; O2SAT 91–99
[2024-06-26 04:00] LABS: Basophils % 1.7 %; Hematocrit 29.3 % (36-47); Lymphocytes # 0.7 10^3/uL (0.8-4.8); Lymphocytes % 61.7 %; Mean Corpuscular HGB Conc 31.4 g/dL (30-55); Mean Corpuscular Hemoglobin 29.4 pg (27-33); Mean Corpuscular Volume 93.6 fl (85-98); Mean Platelet Volume 9.5 fL (7.4-10.4); Monocytes % 1.7 %; Neutrophils % 33.2 %; Nucleated Red Blood Cells % 0 %; Platelet Count 167 10^3/cmm (157-399); Red Blood Count 3.13 10^6/uL (3.85-5.65); Red Cell Distribution Width 14.2 % (12.1-15.1)
[2024-06-26 04:39] LABS: Slide Review Slide Review Perform
[2024-06-26] MEDS: HYDROcodone-acetaminophen 7.5-325 mg Tablet 1 TAB PO ×3 (07:18→21:14)
[2024-06-26] MEDS: levoFLOXacin 750 mg Tablet PO (07:18)
[2024-06-26] MEDS: heparin 5,000 unit/mL INJ 1 mL 5000 UNIT SUBCUT ×2 (07:18→17:22)
[2024-06-26] MEDS: aspirin 81 mg EC Tablet PO (09:25)
[2024-06-26] MEDS: sennosides-docusate Tablet 1 TAB PO (09:25)
[2024-06-26] MEDS: lactulose oral liq 20 gm/30 mL UDC PO (09:25)
[2024-06-26] MEDS: diazePAM 5 mg Tablet PO ×2 (09:30→17:30)
[2024-06-26] MEDS: midodrine 5 mg TABLET 2.5 MG PO ×3 (09:30→17:23)
[2024-06-26] MEDS: filgrastim-sndz 300 mcg/0.5 mL Syringe SUBCUT (14:51)
--- NOTE | 2024-06-26 16:41 | P.PN_ITS ---
Subjective 2 Subjective: Patient was seen this morning, she has no specific complaints, no fevers, no chills, no cough, no abdominal pain, she is developing neutropenia, discussed Neupogen given her recent history of chemotherapy, will discuss with oncology, discussed with patient, discussed risk and benefits, she voiced understanding, all question answered, shared decision, agreed to proceed Vitals/I&O/Wt Last Vital Signs Temp 97.9 F 06/26/24 16:00 Pulse 104 H 06/26/24 16:00 Resp 9 L 06/26/24 16:00 BP 99/62 06/26/24 16:00 Pulse Ox 95 06/26/24 16:00 O2 Del Method Room Air 06/26/24 16:00 O2 Flow Rate 2 06/22/24 08:47 06/26/24 06/26/24 06/26/24 06:59 14:59 22:59 Intake Total 360 / 360 Balance 360 / 360 Weight last 48 hrs Weight 56.109 kg Weight 56.109 kg Physical Exam 2 Const: COMMON NORMALS: no acute distress and patient oriented x3 Resp: COMMON NORMALS: normal respiratory effort, No retractions, No use of accessory muscles and clear to auscultation bilaterally AUSCULTATION: clear to auscultation bilaterally Cardio: COMMON NORMALS: regular rate, regular rhythm, S1 normal heart sound present and S2 normal heart sound present RATE: regular rate RHYTHM: r egular rhythm HEART SOUNDS: S1 normal heart sound present and S2 normal heart sound present GI: COMMON NORMALS: Normal to inspection, nondistended, normoactive bowel sounds present and non-tender Extremity: COMMON NORMALS: no pedal edema Neuro: COMMON NORMALS: patient oriented x3 Psych: COMMON NORMALS: mental status grossly normal Data 06/26/24 03:43 06/24/24 02:21 A&P Assessment and plan (1) Lung cancer: Qualifiers: Laterality: right Lung location: lower lobe of lung Qualified Code(s): C34.31 - Malignant neoplasm of lower lobe, right bronchus or lung (2) Seizure disorder: (3) Community acquired pneumonia: Qualifiers: Laterality: right Lung location: unspecified part of lung Qualified Code(s): J18.9 - Pneumonia, unspecified organism (4) Port-A-Cath in place: (5) Hypotension: Qualifiers: Hypotension type: hypotension due to hypovolemia Qualified Code(s): E 86.1 - Hypovolemia (6) Atrial flutter: Qualifiers: Atrial flutter type: unspecified Qualified Code(s): I48.92 - Unspecified atrial flutter (7) Sepsis: (8) Pneumothorax: (9) Neutropenia: Plan Sepsis related to pneumonia, resolved 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 Acute anemia, transfused 1 unit PRBC, hemoglobin has been stable Now with absolute neutropenia, continue to monitor Neutropenia, will give 1 dose of Neupogen Full code GI soft diet DVT prophylaxis: Heparin plan for today, spoke to oncology, reasonable to give patient dose of Neupogen, absolute neutropenia continue isolation precautions, dose Neupogen Attestations 2 Medical Necessity Statement*: Patient requires hospitalization for absolute neutropenia, Diagnoses Malignant neoplasm of lower lobe of right lung C34.31 Laterality: right Lung location: lower lobe of lung Seizure disorder G40.909 Community acquired pneumonia J18.9 Laterality: right Lung location: unspecified part of lung Port-A-Cath in place Z95.828 Hypotension E86.1 Hypotension type: hypotension due to hypovolemia Atrial flutter I48.92 Atrial flutter type: unspecified Sepsis A41.9 Pneumothorax J93.9 Neutropenia D70.9
[2024-06-26] MEDS: zolpidem 5 mg Tablet PO (21:15)
[2024-06-27] VITALS (9 sets, daily range): BP systolic 87–113; BP diastolic 58–80; PULSE 96–108; RESP 9–18; TEMP 36.5–36.9; O2SAT 90–97
[2024-06-27] MEDS: HYDROcodone-acetaminophen 7.5-325 mg Tablet 1 TAB PO ×5 (02:41→21:04)
[2024-06-27 02:48] LABS: Basophils % 0.9 %; Hematocrit 26.9 % (36-47); Lymphocytes # 0.6 10^3/uL (0.8-4.8); Lymphocytes % 54.4 %; Mean Corpuscular HGB Conc 31.6 g/dL (30-55); Mean Corpuscular Hemoglobin 29.3 pg (27-33); Mean Corpuscular Volume 92.8 fl (85-98); Mean Platelet Volume 10.4 fL (7.4-10.4); Monocytes % 3.5 %; Neutrophils % 41.2 %; Nucleated Red Blood Cells % 0 %; Platelet Count 108 10^3/cmm (157-399); Red Cell Distribution Width 13.5 % (12.1-15.1); White Blood Count 1.14 10^3/uL (3.29-11.43)
[2024-06-27 03:06] LABS: Anion Gap 12.8 (5-19); Blood Urea Nitrogen 16 mg/dL (6-20); Calcium 9.7 mg/dL (8.5-10.5); Carbon Dioxide 30 mmol/L (22-29); Chloride 94 mmol/L (98-107); Creatinine Clr Calc Pharmacy 123.9593; Glomerular Filtration Rate 133.4 mL/min (90-130); Glucose 97 mg/dL (65-115); Osmolality Calculated 277 mOsm/kg (285-295); Potassium 3.8 mmol/L (3.5-5.1); Sodium 133 mmol/L (136-145)
[2024-06-27 03:17] LABS: Slide Review Slide Review Perform
[2024-06-27 03:18] LABS: Neutrophils # 0.47 10^3/uL (1.8-7.7)
[2024-06-27] MEDS: heparin 5,000 unit/mL INJ 1 mL 5000 UNIT SUBCUT ×2 (05:35→17:33)
[2024-06-27] MEDS: midodrine 5 mg TABLET 2.5 MG PO ×3 (07:26→17:33)
[2024-06-27] MEDS: diazePAM 5 mg Tablet PO ×2 (07:26→19:25)
[2024-06-27] MEDS: aspirin 81 mg EC Tablet PO (07:26)
[2024-06-27] MEDS: lactulose oral liq 20 gm/30 mL UDC PO (07:26)
[2024-06-27] MEDS: sennosides-docusate Tablet 1 TAB PO (07:26)
--- NOTE | 2024-06-27 11:10 | PC.PT ---
Pt refused PT treatment today due to jaw pain and just overall not feeling well. Pt was encouraged to get up, but asked please not too.
--- NOTE | 2024-06-27 11:31 | PC.NURSE ---
Patient is refusing PT today. She is having a lot of pain in her jaw and does not feel well. She has been medicated for pain as ordered however not getting much relief. Informed Dr Rudolph.
--- NOTE | 2024-06-27 12:15 | P.DS_ITS ---
Discharge Providers Date of Admission: 06/19/24 23:52 Date of Discharge: June 27, 2024 Attending Provider at Admission: Pauline Grace MD Attending Provider at Discharge: Francisco Rudolph MD Primary Care Provider: Antonella Combs DO Diagnoses at Discharge Discharge Diagnosis (1) Lung cancer: Status: Acute Qualifiers: Laterality: right Lung location: lower lobe of lung Qualified Code(s): C34.31 - Malignant neoplasm of lower lobe, right bronchus or lung (2) Seizure disorder: Status: Acute (3) Community acquired pneumonia: Status: Acute Qualifiers: Laterality: right Lung location: unspecified part of lung Qualified Code(s): J18.9 - Pneumonia, unspecified organism (4) Port-A-Cath in place: Status: Acute (5) Hypotension: Status: Acute Qualifiers: Hypotension type: hypotension due to hypovolemia Qualified Code(s): E86.1 - Hypovolemia (6) Atrial flutter: Status: Acute Qualifiers: Atrial flutter type: unspecified Qualified Code(s): I48.92 - Unspecified atrial flutter (7) Sepsis: Status: Acute (8) Pneumothorax: Status: Acute (9) Neutropenia: Status: Acute Reason for Visit Reason for Visit: SOB Hospital Course Hospital Course This is a 43-year-old female with a past medical history of small cell lung cancer, cytology showing neuroendocrine neoplasm, she has received chemotherapy, presented after chemotherapy with complains of fevers, high heart rate, palpitations, shortness of breath, cough Patient was admitted to [facility] for sepsis related to pneumonia with immunocompromise state given she received chemotherapy 06/20/2024, she received fluid therapy, broad-spectrum antibiotic therapy, overall clinically improved, remained afebrile, cultures so far have been unremarkable, on room air, normotensive, will be discharged on 7 remaining days of Levaquin. She was also found to have a small pneumothorax on admission, repeat chest x- rays show resolution of pneumothorax, she remains on room air Sepsis related to pneumonia, hypotension, resolved Patient's hospitalization was complicated by neutropenia, likely second to chemotherapy, she remains afebrile, nonetheless she will be discharged on 7 days of Levaquin, she also received 2 doses of Neupogen during the hospitalization after discussion with oncology Patient's hospitalization was complicated by periodontitis, left lower premolar, periodontitis. She will be discharged on Levaquin, Flagyl for 7 days, follow-up with dentist as outpatient for consideration of dental extraction. She was also discharged with Tylenol for codeine for dental pain. For her atrial flutter, she converted to normal sinus rhythm in the emergency room, no recurrent episodes atrial flutter, likely related to sepsis, continue to monitor as outpatient Physical Exam Const: COMMON NORMALS: no acute distress and patient oriented x3 HENMT: OTHER: Left lower premolar periodontitis, irritation, inflammation, swelling no pain along mandible, TMJ joint intact, no overlying erythema of the skin, Resp: COMMON NORMALS: normal respiratory effort, No retractions, No use of accessory muscles and clear to auscultation bilaterally AUSCULTATION: clear to auscultation bilaterally Cardio: COMMON NORMALS: regular rate, regular rhythm, S1 normal heart sound present and S2 normal heart sound present RATE: regular rate RHYTHM: regular rhythm HEART SOUNDS: S1 normal heart sound present and S2 normal heart sound present GI: COMMON NORMALS: Normal to inspection, nondistended, normoactive bowel sounds present and non-tender Extremity: COMMON NORMALS: no pedal edema Neuro: COMMON NORMALS: patient oriented x3 Psych: COMMON NORMALS: mental status grossly normal Discharge Data Studies Completed and Pending Completed Studies During Hospitalization Category Date Time Status CT angio chest PE protcl [id number] Stat Cat Scan 06/19/24 22:21 Completed XR chest 1V portable [id number] Routine Exams 06/20/24 07:00 Completed XR chest 1V portable [id number] Routine Exams 06/21/24 08:45 Completed XR chest 1V portable [id number] Stat Exams 06/19/24 20:52 Completed XR chest 1V portable [id number] Stat Exams 06/20/24 10:47 Completed Pending at discharge Category Date Time Status Basic Metabolic Panel AM LABS Lab 06/28/24 04:00 Ordered Basic Metabolic Panel AM LABS Lab 06/29/24 04:00 Ordered Occult Blood Stool [Immunochemical Fecal OCB] Routine Lab 06/24/24 08:02 Uncollected Radiology Impressions Chest CTA 06/19/24 22:21 IMPRESSION: 1. Decrease in the size of the right hilar mass encasing the right middle and right lower lobe bronchi with persistent postobstructive collapse of the right middle and right lower lobe. Moderate right pleural effusion. 2. No pulmonary embolism. 3. Small right pneumothorax. 4. Right upper lobe nodular infiltrates, likely infectious/inflammatory. ADDENDUM: 06/19/24 [id number] THIS REPORT CONTAINS FINDINGS THAT MAY BE CRITICAL TO PATIENT CARE. The findings were verbally communicated via telephone conference with LIZ THURMAN at 11:31 PM BALL SORTER on 06/19/2024. The findings were acknowledged and understood. Chest X-Ray 06/21/24 08:45 IMPRESSION: 1. Moderate to large right pleural effusion with right mid to lower lung field airspace infiltrates similar to prior exam. 2. Right-sided Port-A-Cath. Laboratory Results WBC 1.14 10^3/uL (3.29-11.43) L 06/27/24 02:24 Corrected WBC Cancelled 06/19/24 20:33 RBC 2.90 10^6/uL (3.85-5.65) L 06/27/24 02:24 Hgb 8.50 g/dL (11.27-16.99) L 06/27/24 02:24 Hct 26.9 % (36-47) L 06/27/24 02:24 MCV 92.8 fl (85-98) 06/27/24 02:24 MCH 29.3 pg (27-33) 06/27/24 02:24 MCHC 31.6 g/dL (30-55) 06/27/24 02:24 RDW 13.5 % (12.1-15.1) 06/27/24 02:24 Plt Count 108 10^3/cmm (157-399) L D 06/27/24 02:24 MPV 10.4 fL (7.4-10.4) 06/27/24 02:24 Gran % Cancelled 06/19/24 20:33 Neut % (Auto) 41.2 % 06/27/24 02:24 Lymph % (Auto) 54.4 % 06/27/24 02:24 [place] % (Auto) 3.5 % 06/27/24 02:24 Eos % (Auto) 0.0 % 06/27/24 02:24 Baso % (Auto) 0.9 % 06/27/24 02:24 Neut # (Auto) 0.47 10^3/uL (1.8-7.7) L* 06/27/24 02:24 Lymph # (Auto) 0.6 10^3/uL (0.8-4.8) L 06/27/24 02:24 Screven # (Auto) 0.0 10^3/uL (0.2-0.9) L 06/27/24 02:24 Eos # (Auto) 0.0 10^3/uL (0.0-0.8) 06/27/24 02:24 Baso # (Auto) 0.0 10^3/uL (0.0-0.1) 06/27/24 02:24 Absolute Gran (auto) Cancelled 06/19/24 20:33 Nucleated RBC % (auto) 0 % 06/27/24 02:24 Nucleated RBCs # 0.0 /100WBC 06/27/24 02:24 Specimen Type Arterial 06/19/24 21:05 Sample Site Brachial, left 06/19/24 21:05 ABG pH 7.45 (7.35-7.45) 06/19/24 21:05 ABG pCO2 39.1 mmHg (35-45) 06/19/24 21:05 ABG pO2 58.4 mmHg (80.0-100.0) L 06/19/24 21:05 ABG PO2/FiO2 Ratio 208 06/19/24 21:05 ABG HCO3 27.2 mmol/L (22-26) H 06/19/24 21:05 ABG O2 Saturation 91.6 06/19/24 21:05 ABG Base Excess 3.0 mmol/L (-2.0-2.0) H 06/19/24 21:05 Nelson Test Pos 06/19/24 21:05 A-a O2 Gradient 12.3 mmHg (5-10) H 06/19/24 21:05 Hematocrit 30.9 % (37-47) L 06/19/24 21:05 Hgb O2 Saturation 88.3 % (95-100) L 06/19/24 21:05 Carboxyhemoglobin 2.4 %THgb (0.4-20.1) 06/19/24 21:05 Methemoglobin 1.1 % (0.4-1.5) 06/19/24 21:05 Total Hemoglobin 10.1 g/dL (12-16) L 06/19/24 21:05 Sodium 136.0 mmol/L (131-143) 06/19/24 21:05 Potassium 3.0 mmol/L (3.5-5.0) L 06/19/24 21:05 Glucose 139.0 mg/dL (70-115) H 06/19/24 21:05 Ionized Calcium 1.2 mmol/L (1.1-1.4) 06/19/24 21:05 O2 Delivery Device Nc 06/19/24 21:05 O2 Liters/Min 2.0 % 06/19/24 21:05 FiO2 28.0 % 06/19/24 21:05 Electronic Heat Seal Operator ID Bd 06/19/24 21:05 Sodium 133 mmol/L (136-145) L 06/27/24 02:24 Potassium 3.8 mmol/L (3.5-5.1) 06/27/24 02:24 Chloride 94 mmol/L (98-107) L 06/27/24 02:24 Carbon Dioxide 30 mmol/L (22-29) H 06/27/24 02:24 Anion Gap 12.8 (5-19) 06/27/24 02:24 BUN 16 mg/dL (6-20) 06/27/24 02:24 Creatinine 0.5 mg/dL (0.5-0.9) 06/27/24 02:24 GFR Calculation 133.4 mL/min (90-130) H 06/27/24 02:24 Glucose 97 mg/dL (65-115) 06/27/24 02:24 Calculated Osmolality 277 mOsm/kg (285-295) L 06/27/24 02:24 Lactic Acid 1.4 mmol/L (0.5-2.2) 06/19/24 21:28 Calcium 9.7 mg/dL (8.5-10.5) 06/27/24 02:24 Phosphorus 3.3 mg/dL (2.5-4.5) 06/20/24 02:15 Magnesium 1.6 mg/dL (1.7-2.3) L 06/20/24 02:15 Iron 156 ug/dL (37-145) H 06/24/24 02:21 TIBC 251 mcg/dl 06/24/24 02:21 % Saturation 62.1 % (20-50) H 06/24/24 02:21 Unsat Iron Binding 95 ug/dL (112-347) L 06/24/24 02:21 Ferritin 846 ng/mL (15-150) H 06/24/24 02:21 Total Bilirubin 0.4 mg/dL (0.15-1.2) 06/24/24 02:21 AST 25 U/L (0-32) 06/24/24 02:21 ALT 26 U/L (0-33) 06/24/24 02:21 Alkaline Phosphatase 240 U/L (35-105) H 06/24/24 02:21 Troponin T Baseline < 6 ng/L (0-10) 06/19/24 20:33 Troponin T 120 Minute 6.00 ng/L (0-10) 06/19/24 22:26 Delta Troponin T 0.49320 ABS# (0-10) 06/19/24 22:26 Troponin T Hi Sens 6Hr 9.88 ng/L (0-10) 06/20/24 02:15 Troponin T Hi Sens 6Hr Delta 3.29903 ng/L (0-12) 06/20/24 02:15 C-Reactive Protein 218.0 mg/L (0.0-4.9) H 06/20/24 02:15 Total Protein 7.0 g/dL (6.6-8.7) 06/24/24 02:21 Albumin 3.6 g/dL (3.5-5.2) 06/24/24 02:21 Globulin 3.4 g/dL (1.3-4.6) 06/24/24 02:21 Procalcitonin 0.22 ng/mL (0-0.5) 06/19/24 20:33 TSH 0.71 uIU/mL (0.27-4.20) 06/19/24 20:33 Nasal MRSA (PCR) Not detected (Not Detecte) 06/20/24 01:10 Vancomycin Trough 16.0 ug/mL (10-15) H 06/22/24 11:37 Coronavirus (PCR) Negative (Negative) 06/19/24 23:47 Influenza A (PCR) Negative (Negative) 06/19/24 23:47 Influenza Type B (PCR) Negative (Negative) 06/19/24 23:47 RSV (PCR) Negative (Negative) 06/19/24 23:47 Blood Type O Positive 06/24/24 09:05 Rho(D) Type Rh positive 06/24/24 09:05 Antibody Screen Negative 06/24/24 09:05 Crossmatch See Detail 06/24/24 09:05 Vitals Last Vital Signs Temp 97.7 F 06/27/24 11:43 Pulse 108 H 06/27/24 11:43 Resp 18 06/27/24 09:30 BP 94/66 06/27/24 11:43 Pulse Ox 97 06/27/24 11:43 O2 Del Method Room Air 06/27/24 11:43 O2 Flow Rate 2 06/22/24 08:47 Discharge Plan Discharge Patient Disposition: Xfer Inpatient Rehab Fac Condition: Stable Prescriptions: New levetiracetam 500 mg Tablet 500 mg PO DAILY 30 Days Qty: 30 0RF metronidazole 500 mg Tablet 500 mg PO Q8H 7 Days Qty: 21 0RF levofloxacin 750 mg Tablet 750 mg PO Q24H 7 Days Qty: 7 0RF acetaminophen-codeine 120-12 mg/5 mL solution 5 ml PO Q8H PRN (Reason: pain) 7 Days Qty: 35 0RF Rx Instructions: for localized dental pain relief Continued ondansetron 8 mg tablet,disintegrating 8 mg PO DAILY atorvastatin 20 mg tablet 20 mg PO DAILY aspirin 81 mg tablet,delayed release (DR/EC) 81 mg PO DAILY hydrocodone-acetaminophen 7.5-325 mg tablet 1 tab PO Q6H PRN (Reason: pain) 30 Days Qty: 112 0RF diazepam [Valium] 5 mg tablet 5 mg PO BID PRN (Reason: anxiety) Qty: 60 0RF lidocaine-prilocaine 2.5-2.5 % cream 1 applic topical .COMPLEX Qty: 30 4RF Rx Instructions: Apply quarter size amount 30-45 minutes prior to port access, cover with cellophane prochlorperazine maleate [Compazine] 10 mg tablet 10 mg PO Q4H PRN (Reason: mild nausea) Qty: 30 3RF midodrine 2.5 mg tablet 2.5 mg PO TID Qty: 90 3RF olanzapine 5 mg tablet 5 mg PO QPM Qty: 30 3RF Rx Instructions: Take for 5 days post chemo. Discharge Orders: Discharge Order (Routine); Ordered 06/27/24 Ordered By: Francisco Rudolph Referrals: Jeannie Sanford MD [Hospitalist] - 4-7 days Antonella Combs DO [Primary Care Provider] - Discharge Diet: Cardiac Discharge Activity: Resume usual activity Patient Instructions: Opioid Safety Activity Restrictions/Additional Instructions: - Please follow-up with your dentist for periodontitis -Dr.Galen Avendano [phone] -Please use Tylenol with codeine sparingly for localized pain relief for periodontitis -Please follow-up with oncology in 1 week -Please repeat CBC in 48 hours -Continue neutropenic precautions, avoid fresh fruit -White blood cell count 1.14 on discharge -For periodontitis, discharged on Levaquin, Flagyl -If any fevers, chills, cough please go to the emergency room Discharge Attestations Time Spent in Discharge Care*: greater than 30 min Quality Metrics Clinical Quality Measures [ No reported AMI, CVA or VTE this stay] Coding Level of Care Code 36432 Total time (in minutes) for Discharge: 45 Diagnoses Malignant neoplasm of lower lobe of right lung C34.31 Laterality: right Lung location: lower lobe of lung Seizure disorder G40.909 Community acquired pneumonia J18.9 Laterality: right Lung location: unspecified part of lung Port-A-Cath in place Z95.828 Hypotension E86.1 Hypotension type: hypotension due to hypovolemia Atrial flutter I48.92 Atrial flutter type: unspecified Sepsis A41.9 Pneumothorax J93.9 Neutropenia D70.9
[2024-06-27] MEDS: guaiFENesin-codeine UDC 10 mL 5 ML PO (12:23)
[2024-06-27] MEDS: metroNIDAZOLE 500 MG Tablet PO ×2 (12:23→19:25)
[2024-06-27] MEDS: levoFLOXacin 750 mg Tablet PO (12:23)
--- NOTE | 2024-06-27 13:38 | PC.OT ---
Pt declines OT services at this time. Pt states she is having severe pain in her jaw and recently received pain medication that has not set in yet. Will continue OT services at a later date.
[2024-06-27] MEDS: filgrastim-sndz 300 mcg/0.5 mL Syringe SUBCUT (13:46)
[2024-06-27] MEDS: nystatin 100,000 unit/mL UDC 5 mL 500000 UNIT PO ×2 (17:32→21:04)
[2024-06-27] MEDS: zolpidem 5 mg Tablet PO (21:04)
[2024-06-28] VITALS (155 sets, daily range): BP systolic 93–118; BP diastolic 57–89; PULSE 92–143; RESP 4–22; TEMP 36.7–36.8; O2SAT 84–96
[2024-06-28 02:39] LABS: Basophils % 1.2 %; Hematocrit 26.1 % (36-47); Lymphocytes # 0.5 10^3/uL (0.8-4.8); Lymphocytes % 64.6 %; Mean Corpuscular HGB Conc 31.4 g/dL (30-55); Mean Corpuscular Hemoglobin 29.2 pg (27-33); Mean Corpuscular Volume 92.9 fl (85-98); Mean Platelet Volume 10.7 fL (7.4-10.4); Monocytes # 0.1 10^3/uL (0.2-0.9); Neutrophils % 23.2 %; Nucleated Red Blood Cells % 0 %; Platelet Count 66 10^3/cmm (157-399); Red Blood Count 2.81 10^6/uL (3.85-5.65); Red Cell Distribution Width 13.5 % (12.1-15.1)
[2024-06-28 02:44] LABS: Anion Gap 13.9 (5-19); Blood Urea Nitrogen 18 mg/dL (6-20); Calcium 9.6 mg/dL (8.5-10.5); Carbon Dioxide 32 mmol/L (22-29); Chloride 91 mmol/L (98-107); Creatinine Clr Calc Pharmacy 126.2383; Glomerular Filtration Rate 133.4 mL/min (90-130); Glucose 110 mg/dL (65-115); Osmolality Calculated 279 mOsm/kg (285-295); Potassium 3.9 mmol/L (3.5-5.1); Sodium 133 mmol/L (136-145)
[2024-06-28 03:09] LABS: Slide Review Slide Review Perform
[2024-06-28 03:10] LABS: Neutrophils # 0.19 10^3/uL (1.8-7.7); White Blood Count 0.82 10^3/uL (3.29-11.43)
[2024-06-28] MEDS: HYDROcodone-acetaminophen 7.5-325 mg Tablet 1 TAB PO ×5 (03:36→21:01)
[2024-06-28] MEDS: metroNIDAZOLE 500 MG Tablet PO ×3 (03:36→21:01)
[2024-06-28] MEDS: heparin 5,000 unit/mL INJ 1 mL 5000 UNIT SUBCUT (06:11)
[2024-06-28] MEDS: sennosides-docusate Tablet 1 TAB PO (08:26)
[2024-06-28] MEDS: lactulose oral liq 20 gm/30 mL UDC PO (08:26)
[2024-06-28] MEDS: nystatin 100,000 unit/mL UDC 5 mL 500000 UNIT PO ×4 (08:26→21:01)
[2024-06-28] MEDS: aspirin 81 mg EC Tablet PO (08:27)
[2024-06-28] MEDS: midodrine 5 mg TABLET 2.5 MG PO ×3 (08:34→17:25)
[2024-06-28 09:27] LABS: C Reactive Protein 52.5 mg/L (0.0-4.9); Lactate Dehydrogenase 129 U/L (135-214)
[2024-06-28] MEDS: diazePAM 5 mg Tablet PO (12:31)
[2024-06-28] MEDS: levoFLOXacin 750 mg Tablet PO (12:31)
--- NOTE | 2024-06-28 14:06 | P.PN_ITS ---
Subjective 2 Subjective: Patient was seen this morning, she was alert oriented x 3, following all commands, denies any fevers, no chills, no cough we discussed her pancytopenia, she was likely going to be discharged today, however given her developing pancytopenia we will likely watch her for the next 2448 hrs., no nausea, no vomiting, no abdominal pain, no shortness of breath, Vitals/I&O/Wt Last Vital Signs Temp 98.2 F 06/28/24 03:48 Pulse 96 06/28/24 13:15 Resp 9 L 06/28/24 13:15 BP 103/67 06/28/24 13:15 Pulse Ox 96 06/28/24 10:00 O2 Del Method Room Air 06/28/24 10:00 O2 Flow Rate 2 06/22/24 08:47 06/27/24 06/28/24 06/28/24 22:59 06:59 14:59 Intake Total 600 / 600 Output Total 300 / 400 550 / 950 700 / 700 Balance -300 / -290 -550 / -840 -100 / -100 Weight last 48 hrs Weight 59.058 kg Weight 58.649 kg Physical Exam 2 Const: COMMON NORMALS: no acute distress and patient oriented x3 Resp: COMMON NORMALS: normal respiratory effort, No retractions, No use of accessory muscles and clear to auscultation bilaterally AUSCULTATION: clear to auscultation bilaterally Cardio: COMMON NORMALS: regular rate, regular rhythm, S1 normal heart sound present and S2 normal heart sound present RATE: regular rate RHYTHM: r egular rhythm HEART SOUNDS: S1 normal heart sound present and S2 normal heart sound present GI: COMMON NORMALS: Normal to inspection, nondistended, normoactive bowel sounds present and non-tender Extremity: COMMON NORMALS: no pedal edema Neuro: COMMON NORMALS: patient oriented x3 Psych: COMMON NORMALS: mental status grossly normal Data 06/28/24 01:40 06/28/24 01:40 A&P Assessment and plan (1) Lung cancer: Qualifiers: Laterality: right Lung location: lower lobe of lung Qualified Code(s): C34.31 - Malignant neoplasm of lower lobe, right bronchus or lung (2) Seizure disorder: (3) Community acquired pneumonia: Qualifiers: Laterality: right Lung location: unspecified part of lung Qualified Code(s): J18.9 - Pneumonia, unspecified organism (4) Port-A-Cath in place: (5) Hypotension: Qualifiers: Hypotension type: hypotension due to hypovolemia Qualified Code(s): E 86.1 - Hypovolemia (6) Atrial flutter: Qualifiers: Atrial flutter type: unspecified Qualified Code(s): I48.92 - Unspecified atrial flutter (7) Sepsis: (8) Pneumothorax: (9) Neutropenia: (10) Pancytopenia: (11) Periodontitis: (12) Dental infection: Plan Sepsis related to pneumonia, resolved 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 Now with pancytopenia -Likely chemotherapy related -Keep on isolation precaution -Acute anemia, s/p 1 unit PRBC, monitor -Thrombocytopenia, will hold heparin -Neutropenia, absolute neutropenia status post 2 doses of Neupogen Dental infection, periodontitis -Left lower premolar -On p.o. Levaquin, Flagyl Full code GI soft diet DVT prophylaxis: Heparin plan for today, continue isolation precautions, monitor CBC, pancytopenia Attestations 2 Medical Necessity Statement*: Patient requires hospitalization for pancytopenia likely chemotherapy related, dental infection Diagnoses Malignant neoplasm of lower lobe of right lung C34.31 Laterality: right Lung location: lower lobe of lung Seizure disorder G40.909 Community acquired pneumonia J18.9 Laterality: right Lung location: unspecified part of lung Port-A-Cath in place Z95.828 Hypotension E86.1 Hypotension type: hypotension due to hypovolemia Atrial flutter I48.92 Atrial flutter type: unspecified Sepsis A41.9 Pneumothorax J93.9 Neutropenia D70.9 Pancytopenia D61.818 Periodontitis K05.30 Dental infection K04.7
[2024-06-28 15:32] LABS: LAB Peripheral Smear Sent for Review
[2024-06-28 15:36] LABS: Hematocrit 25.1 % (36-47); Lymphocytes # 0.6 10^3/uL (0.8-4.8); Lymphocytes % 73.8 %; Mean Corpuscular HGB Conc 30.7 g/dL (30-55); Mean Corpuscular Hemoglobin 29.1 pg (27-33); Mean Corpuscular Volume 94.7 fl (85-98); Mean Platelet Volume 11.9 fL (7.4-10.4); Monocytes # 0.1 10^3/uL (0.2-0.9); Monocytes % 11.3 %; Neutrophils % 14.9 %; Nucleated Red Blood Cells % 0 %; Platelet Count 47 10^3/cmm (157-399); Red Blood Count 2.65 10^6/uL (3.85-5.65); Red Cell Distribution Width 13.3 % (12.1-15.1)
[2024-06-28 15:37] LABS: Neutrophils # 0.12 10^3/uL (1.8-7.7)
[2024-06-28] MEDS: ondansetron 2 mg/ML SDV 2 mL 4 MG IVP (20:33)
[2024-06-28] MEDS: zolpidem 5 mg Tablet PO (21:01)
[2024-06-29] VITALS (9 sets, daily range): BP systolic 94–123; BP diastolic 60–73; PULSE 93–111; RESP 10–18; TEMP 36.6–36.9; O2SAT 92–95
[2024-06-29] MEDS: HYDROcodone-acetaminophen 7.5-325 mg Tablet 1 TAB PO ×5 (03:03→21:54)
[2024-06-29] MEDS: metroNIDAZOLE 500 MG Tablet PO ×3 (03:03→21:01)
[2024-06-29 03:34] LABS: Basophils % 1.3 %; Hematocrit 24.9 % (36-47); Lymphocytes # 0.6 10^3/uL (0.8-4.8); Mean Corpuscular HGB Conc 30.5 g/dL (30-55); Mean Corpuscular Hemoglobin 29.1 pg (27-33); Mean Corpuscular Volume 95.4 fl (85-98); Mean Platelet Volume 11.9 fL (7.4-10.4); Monocytes # 0.1 10^3/uL (0.2-0.9); Monocytes % 15.8 %; Neutrophils % 7.9 %; Nucleated Red Blood Cells % 0 %; Platelet Count 47 10^3/cmm (157-399); Red Blood Count 2.61 10^6/uL (3.85-5.65); Red Cell Distribution Width 13.3 % (12.1-15.1)
[2024-06-29 03:40] LABS: Neutrophils # 0.06 10^3/uL (1.8-7.7); White Blood Count 0.76 10^3/uL (3.29-11.43)
[2024-06-29 03:59] LABS: Alanine Aminotransferase 76 U/L (0-33); Albumin Level 3.3 g/dL (3.5-5.2); Alkaline Phosphatase 317 U/L (35-105); Aspartate Amino Transferase 66 U/L (0-32); Blood Urea Nitrogen 15 mg/dL (6-20); Calcium 9.1 mg/dL (8.5-10.5); Carbon Dioxide 31 mmol/L (22-29); Chloride 94 mmol/L (98-107); Creatinine Clr Calc Pharmacy 158.2565; Globulin 3.2 g/dL (1.3-4.6); Glomerular Filtration Rate 172.6 mL/min (90-130); Glucose 88 mg/dL (65-115); Magnesium 1.6 mg/dL (1.7-2.3); Osmolality Calculated 276 mOsm/kg (285-295); Sodium 133 mmol/L (136-145); Total Bilirubin 0.3 mg/dL (0.15-1.2); Total Protein 6.5 g/dL (6.6-8.7)
[2024-06-29 04:24] LABS: NT Pro B Type Natriuretic Pept < 36 pg/mL (0-125); Procalcitonin 0.24 ng/mL (0-0.5)
[2024-06-29 04:37] LABS: Anion Gap 14.9 (5-19); Blood Urea Nitrogen 14 mg/dL (6-20); Calcium 8.8 mg/dL (8.5-10.5); Carbon Dioxide 29 mmol/L (22-29); Chloride 92 mmol/L (98-107); Creatinine Clr Calc Pharmacy 158.2565; Glomerular Filtration Rate 172.6 mL/min (90-130); Glucose 86 mg/dL (65-115); Osmolality Calculated 274 mOsm/kg (285-295); Potassium 3.9 mmol/L (3.5-5.1); Sodium 132 mmol/L (136-145)
[2024-06-29] MEDS: midodrine 5 mg TABLET 2.5 MG PO ×3 (08:48→17:44)
[2024-06-29] MEDS: lactulose oral liq 20 gm/30 mL UDC PO (08:48)
[2024-06-29] MEDS: aspirin 81 mg EC Tablet PO (08:48)
[2024-06-29] MEDS: sennosides-docusate Tablet 1 TAB PO (08:49)
[2024-06-29] MEDS: nystatin 100,000 unit/mL UDC 5 mL 500000 UNIT PO ×3 (08:49→21:02)
[2024-06-29] MEDS: diazePAM 5 mg Tablet PO (08:55)
[2024-06-29] MEDS: levoFLOXacin 750 mg Tablet PO (11:56)
--- NOTE | 2024-06-29 14:28 | P.PN_ITS ---
Subjective 2 Subjective: Patient was seen this morning, she is resting comfortably in bed, no fevers, chills, no cough, no nausea, no vomiting no abdominal pain no diarrhea, no lightheadedness, no dizziness, no bleeding complaints no headache, no blurry vision, we discussed her anemia or thrombocytopenia neutropenia likely chemotherapy-induced, plan to continue to monitor she is agreeable Vitals/I&O/Wt Last Vital Signs Temp 98.5 F 06/29/24 11:34 Pulse 99 06/29/24 11:34 Resp 10 L 06/29/24 11:34 BP 99/62 06/29/24 11:34 Pulse Ox 92 06/29/24 11:34 O2 Del Method Room Air 06/29/24 11:34 O2 Flow Rate 2 06/22/24 08:47 06/28/24 06/29/24 06/29/24 22:59 06:59 14:59 Intake Total 200 / 800 720 / 720 Output Total 350 / 1050 200 / 200 Balance -350 / -450 200 / -250 520 / 520 Weight last 48 hrs Weight 59.058 kg Weight 59.058 kg Physical Exam 2 Const: COMMON NORMALS: no acute distress and patient oriented x3 Neck/C-Spine: COMMON NORMALS: no JVD Resp: COMMON NORMALS: normal respiratory effort, No retractions, No use of accessory muscles and clear to auscultation bilaterally AUSCULTATION: clear to auscultation bilaterally Cardio: COMMON NORMALS: no JVD, regular rate, regular rhythm, S1 normal heart sound present and S2 normal heart sound present RATE: regular rate RHYTHM: regular rhythm HEART SOUNDS: S1 normal heart sound present and S2 normal heart sound present GI: COMMON NORMALS: Normal to inspection, nondistended, normoactive bowel sounds present and non-tender Extremity: COMMON NORMALS: no pedal edema Neuro: COMMON NORMALS: patient oriented x3 Psych: COMMON NORMALS: mental status grossly normal Data 06/29/24 02:57 06/29/24 02:57 A&P Assessment and plan (1) Lung cancer: Qualifiers: Laterality: right Lung location: lower lobe of lung Qualified Code(s): C34.31 - Malignant neoplasm of lower lobe, right bronchus or lung (2) Seizure disorder: (3) Community acquired pneumonia: Qualifiers: Laterality: right Lung location: unspecified part of lung Qualified Code(s): J18.9 - Pneumonia, unspecified organism (4) Port-A-Cath in place: (5) Hypotension: Qualifiers: Hypotension type: hypotension due to hypovolemia Qualified Code(s): E 86.1 - Hypovolemia (6) Atrial flutter: Qualifiers: Atrial flutter type: unspecified Qualified Code(s): I48.92 - Unspecified atrial flutter (7) Sepsis: (8) Pneumothorax: (9) Neutropenia: (10) Pancytopenia: (11) Periodontitis: (12) Dental infection: Plan Sepsis related to pneumonia, resolved 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 Now with pancytopenia -Likely chemotherapy related -LDH 129, haptoglobin 276 -Iron 156, ferritin 846 -Keep on isolation precaution -Acute anemia, 7.8 s/p 1 unit PRBC, monitor -Thrombocytopenia, 47,000 will hold heparin -Neutropenia, 0.76 absolute neutropenia status post 2 doses of Neupogen Dental infection, periodontitis -Left lower premolar -On p.o. Levaquin, Flagyl Full code GI soft diet DVT prophylaxis: Heparin plan for today, continue isolation precautions, repeat CBC this afternoon will consider repletion of platelets and hemoglobin, continue antibiotics, Attestations 2 Medical Necessity Statement*: Patient requires hospitalization for chemotherapy induced pancytopenia, dental infection Diagnoses Malignant neoplasm of lower lobe of right lung C34.31 Laterality: right Lung location: lower lobe of lung Seizure disorder G40.909 Community acquired pneumonia J18.9 Laterality: right Lung location: unspecified part of lung Port-A-Cath in place Z95.828 Hypotension E86.1 Hypotension type: hypotension due to hypovolemia Atrial flutter I48.92 Atrial flutter type: unspecified Sepsis A41.9 Pneumothorax J93.9 Neutropenia D70.9 Pancytopenia D61.818 Periodontitis K05.30 Dental infection K04.7
[2024-06-29 16:03] LABS: Hematocrit 24.9 % (36-47); Lymphocytes # 0.6 10^3/uL (0.8-4.8); Lymphocytes % 72.4 %; Mean Corpuscular HGB Conc 31.3 g/dL (30-55); Mean Corpuscular Hemoglobin 28.7 pg (27-33); Mean Corpuscular Volume 91.5 fl (85-98); Mean Platelet Volume 11.5 fL (7.4-10.4); Monocytes # 0.1 10^3/uL (0.2-0.9); Monocytes % 18.4 %; Neutrophils % 7.9 %; Nucleated Red Blood Cells % 0 %; Platelet Count 47 10^3/cmm (157-399); Red Blood Count 2.72 10^6/uL (3.85-5.65); Red Cell Distribution Width 13.3 % (12.1-15.1)
[2024-06-29 16:22] LABS: Neutrophils # 0.06 10^3/uL (1.8-7.7); White Blood Count 0.76 10^3/uL (3.29-11.43)
[2024-06-29] MEDS: zolpidem 5 mg Tablet PO (21:01)
[2024-06-30] VITALS: BP 87/55; PULSE 94; RESP 17; TEMP 36.6; O2SAT 97
[2024-06-30] MEDS: HYDROcodone-acetaminophen 7.5-325 mg Tablet 1 TAB PO ×3 (03:07→12:37)
[2024-06-30] MEDS: diazePAM 5 mg Tablet PO ×2 (03:08→12:38)
[2024-06-30] MEDS: metroNIDAZOLE 500 MG Tablet PO ×2 (03:08→12:32)
[2024-06-30 03:32] LABS: Basophils % 0.9 %; Hematocrit 27.3 % (36-47); Lymphocytes # 0.8 10^3/uL (0.8-4.8); Lymphocytes % 74.1 %; Mean Corpuscular HGB Conc 31.5 g/dL (30-55); Mean Corpuscular Hemoglobin 29.2 pg (27-33); Mean Corpuscular Volume 92.5 fl (85-98); Mean Platelet Volume 12.1 fL (7.4-10.4); Monocytes # 0.2 10^3/uL (0.2-0.9); Monocytes % 17.6 %; Neutrophils % 7.4 %; Nucleated Red Blood Cells % 0 %; Platelet Count 49 10^3/cmm (157-399); Red Blood Count 2.95 10^6/uL (3.85-5.65); Red Cell Distribution Width 13.4 % (12.1-15.1); White Blood Count 1.08 10^3/uL (3.29-11.43)
[2024-06-30 04:00] VITALS: BP 92/52; PULSE 101; RESP 12; TEMP 36.7; O2SAT 93
[2024-06-30 04:07] LABS: Neutrophils # 0.08 10^3/uL (1.8-7.7)
[2024-06-30 04:17] LABS: Alanine Aminotransferase 113 U/L (0-33); Albumin Level 3.6 g/dL (3.5-5.2); Alkaline Phosphatase 374 U/L (35-105); Anion Gap 14.8 (5-19); Aspartate Amino Transferase 114 U/L (0-32); Blood Urea Nitrogen 13 mg/dL (6-20); Calcium 9.3 mg/dL (8.5-10.5); Carbon Dioxide 29 mmol/L (22-29); Chloride 91 mmol/L (98-107); Creatinine Clr Calc Pharmacy 105.5044; Globulin 3.1 g/dL (1.3-4.6); Glomerular Filtration Rate 108.1 mL/min (90-130); Glucose 95 mg/dL (65-115); Magnesium 1.6 mg/dL (1.7-2.3); Osmolality Calculated 272 mOsm/kg (285-295); Potassium 3.8 mmol/L (3.5-5.1); Sodium 131 mmol/L (136-145); Total Bilirubin 0.3 mg/dL (0.15-1.2); Total Protein 6.7 g/dL (6.6-8.7)
[2024-06-30 04:26] LABS: NT Pro B Type Natriuretic Pept < 36 pg/mL (0-125); Procalcitonin 0.19 ng/mL (0-0.5)
[2024-06-30 06:00] VITALS: PULSE 90
[2024-06-30 07:21] VITALS: BP 99/61; PULSE 103; RESP 16; TEMP 36.6; O2SAT 94
[2024-06-30] MEDS: sennosides-docusate Tablet 1 TAB PO (08:38)
[2024-06-30] MEDS: aspirin 81 mg EC Tablet PO (08:38)
[2024-06-30] MEDS: lactulose oral liq 20 gm/30 mL UDC PO (08:38)
[2024-06-30] MEDS: nystatin 100,000 unit/mL UDC 5 mL 500000 UNIT PO ×2 (08:38→12:32)
[2024-06-30] MEDS: midodrine 5 mg TABLET 2.5 MG PO ×2 (08:38→12:32)
--- NOTE | 2024-06-30 09:17 | CT_ITS ---
WS: [id number] CT ABDOMEN PELVIS TECHNIQUE: Noncontrast CT of the abdomen and pelvis with coronal and sagittal reformatted images. CLINICAL INFORMATION: transaminitis COMPARISON: None. DLP: 360.[address] scans at [facility] [place] use at least one of these dose optimization techniques: automated e xposure control; mA and/or kV adjustment per patient size (includes targeted exams where dose is matc hed to clinical indication); or iterative reconstruction. FINDINGS: Small RIGHT pleural effusion. Patchy infiltrates with subsegmental atelectasis RIGHT lower lobe. Pedro mmend correlation for pneumonia. Bronchiectasis RIGHT lower lobe. Trace atelectasis LEFT lower lobe. Low-attenuation lesion LEFT hepatic lobe measuring 0.9 cm is nonspecific. This does not appear cystic . Additional lesion in the LEFT hepatic lobe anterior laterally measuring 1.4 cm. Also nonspecific. M etastatic disease not excluded. Findings could be further evaluated with ultrasound and/or contrast-e nhanced CT abdomen pelvis with liver protocol. LEFT adrenal adenoma measuring 1.9 cm. RIGHT adrenal gland is normal. Normal GE junction. Noncontrast spleen appears normal. Small amount of free fluid in the pelvis. Sigmoid constipation. Normal appendix in the RIGHT lower qu adrant. Normal caliber abdominal aorta. Tiny fat-containing umbilical hernia. Noncontrast gallbladder appears normal. CT/CT abdomen pelvis con [id number] IMPRESSION: 1. 2 nonspecific low-attenuation lesions in the LEFT hepatic lobe measuring 0. 9 and 1.4 cm described above. Recommend further evaluation with ultrasound and/ or contrast-enhanced CT abdomen pelvis with liver phase protocol. Metastatic di sease not excluded given clinical history 2. Small RIGHT pleural effusion with RIGHT lower lobe atelectasis suspicious f or pneumonia. 3. Prior hysterectomy. 4. Mild hepatomegaly 5. Sigmoid constipation. 6. No other acute findings.
[2024-06-30] MEDS: filgrastim-sndz 300 mcg/0.5 mL Syringe SUBCUT (09:51)
[2024-06-30 10:00] VITALS: PULSE 95; RESP 16; O2SAT 95
[2024-06-30 11:00] VITALS: BP 103/65; PULSE 105; RESP 13; TEMP 36.1; O2SAT 95
[2024-06-30] MEDS: levoFLOXacin 750 mg Tablet PO (12:32)
--- NOTE | 2024-06-30 13:36 | P.PN_ITS ---
Subjective 2 Subjective: This is progress note from 06/27/2024 -Patient was seen this morning, complain ing of dental pain, no fevers, chills, no cough Vitals/I&O/Wt Last Vital Signs Temp 96.9 F L 06/30/24 11:00 Pulse 105 H 06/30/24 11:00 Resp 13 06/30/24 11:00 BP 103/65 06/30/24 11:00 Pulse Ox 95 06/30/24 11:00 O2 Del Method Room Air 06/30/24 11:00 O2 Flow Rate 2 06/22/24 08:47 06/29/24 06/30/24 06/30/24 22:59 06:59 14:59 Intake Total 240 / 960 240 / 240 Output Total 50 / 250 Balance 190 / 710 240 / 240 Weight last 48 hrs Weight 58.604 kg Weight 59.058 kg Physical Exam 2 Const: COMMON NORMALS: no acute distress and patient oriented x3 Resp: COMMON NORMALS: normal respiratory effort, No retractions, No use of accessory muscles and clear to auscultation bilaterally AUSCULTATION: clear to auscultation bilaterally Cardio: COMMON NORMALS: regular rate, regular rhythm, S1 normal heart sound present and S2 normal heart sound present RATE: regular rate RHYTHM: r egular rhythm HEART SOUNDS: S1 normal heart sound present and S2 normal heart sound present GI: COMMON NORMALS: Normal to inspection, nondistended, normoactive bowel sounds present and non-tender Extremity: COMMON NORMALS: no pedal edema Neuro: COMMON NORMALS: patient oriented x3 Psych: COMMON NORMALS: mental status grossly normal Data 06/30/24 03:15 06/30/24 03:15 A&P Assessment and plan (1) Lung cancer: Qualifiers: Laterality: right Lung location: lower lobe of lung Qualified Code(s): C34.31 - Malignant neoplasm of lower lobe, right bronchus or lung (2) Seizure disorder: (3) Community acquired pneumonia: Qualifiers: Laterality: right Lung location: unspecified part of lung Qualified Code(s): J18.9 - Pneumonia, unspecified organism (4) Port-A-Cath in place: (5) Hypotension: Qualifiers: Hypotension type: hypotension due to hypovolemia Qualified Code(s): E 86.1 - Hypovolemia (6) Atrial flutter: Qualifiers: Atrial flutter type: unspecified Qualified Code(s): I48.92 - Unspecified atrial flutter (7) Sepsis: (8) Pneumothorax: (9) Neutropenia: (10) Pancytopenia: (11) Periodontitis: (12) Dental infection: Plan Sepsis related to pneumonia, resolved 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 Will monitor patient over the weekend for pancytopenia -Likely chemotherapy related -LDH 129, haptoglobin 276 -Iron 156, ferritin 846 -Keep on isolation precaution Dental infection, periodontitis -Left lower premolar -On p.o. Levaquin, Flagyl Full code GI soft diet DVT prophylaxis: Heparin plan for today, continue isolation precautions, repeat CBC this afternoon will consider repletion of platelets and hemoglobin, continue antibiotics, Attestations 2 Medical Necessity Statement*: Patient requires hospitalization for pancytopenia, dental infection, history of chemotherapy, this is progress note 06/27/2024 Diagnoses Malignant neoplasm of lower lobe of right lung C34.31 Laterality: right Lung location: lower lobe of lung Seizure disorder G40.909 Community acquired pneumonia J18.9 Laterality: right Lung location: unspecified part of lung Port-A-Cath in place Z95.828 Hypotension E86.1 Hypotension type: hypotension due to hypovolemia Atrial flutter I48.92 Atrial flutter type: unspecified Sepsis A41.9 Pneumothorax J93.9 Neutropenia D70.9 Pancytopenia D61.818 Periodontitis K05.30 Dental infection K04.7
== END 2024-06-30 15:48 | DRG 871 ==
LOC: ER 22:12 → CSU 23:53
PROVIDERS: Emergency Medicine; Admitting Provider Internal Medicine; Emergency Provider General Practice; PCP Family Medicine; Visit Provider Family Medicine
DX: A41.9 Sepsis, unspecified organism (principal); D61.810 Antineoplastic chemotherapy induced pancytopenia; J18.9 Pneumonia, unspecified organism; C7A.8 Other malignant neuroendocrine tumors; I48.92 Unspecified atrial flutter; J93.9 Pneumothorax, unspecified; D84.821 Immunodeficiency due to drugs; E46 Unspecified protein-calorie malnutrition; J90 Pleural effusion, not elsewhere classified; I69.351 Hemiplegia and hemiparesis following cerebral infarction affecting right dominant side; R65.20 Severe sepsis without septic shock; T45.1X5A Adverse effect of antineoplastic and immunosuppressive drugs, initial encounter; D70.1 Agranulocytosis secondary to cancer chemotherapy; G40.909 Epilepsy, unspecified, not intractable, without status epilepticus; K05.20 Aggressive periodontitis, unspecified; E86.1 Hypovolemia; Z95.828 Presence of other vascular implants and grafts; Z79.82 Long term (current) use of aspirin; Z79.891 Long term (current) use of opiate analgesic; Z68.22 Body mass index [BMI] 22.0-22.9, adult; Z87.891 Personal history of nicotine dependence; Z99.3 Dependence on wheelchair
CPT/HCPCS: 36415; 36430; 36591; 71045; 71275; 74176; 80048; 80051; 80053; 80202; 80503; 82330; 82728; 82805; 83010; 83540; 83550; 83605; 83615; 83735; 83880; 84100; 84145; 84443; 84484; 85025; 86140; 86850; 86900; 86920; 87040; 87070; 87205; 87637; 93005; 94640; 96365; 96366; 96367; 96372; 96375; 96376; 97110; 97116; 97161; 97165; 97530; 97535; 99222; 99285; J0131; J0692; J1644; J1940; J2020; J2185; J2405; J2919; J3370; J7030; J7050; P9040; P9046; Q5101

== ENCOUNTER 2024-07-23 08:05 | Oncology outpatient (recurring) (ONCR) | payer MEDICAID, SELFPAY ==
[2024-07-21 08:41] LABS: Basophils % 0.8 %; Eosinophils % 0.6 %; Hematocrit 35.8 % (36-47); Lymphocytes # 1.9 10^3/uL (0.8-4.8); Lymphocytes % 35.7 %; Mean Corpuscular Hemoglobin 31.6 pg (27-33); Mean Platelet Volume 10.7 fL (7.4-10.4); Monocytes # 0.6 10^3/uL (0.2-0.9); Monocytes % 10.7 %; Neutrophils # 2.73 10^3/uL (1.8-7.7); Nucleated Red Blood Cells % 0 %; Platelet Count 275 10^3/cmm (157-399); Red Blood Count 3.51 10^6/uL (3.85-5.65); Red Cell Distribution Width 17.7 % (12.1-15.1); White Blood Count 5.24 10^3/uL (3.29-11.43)
[2024-07-21 09:21] LABS: Alanine Aminotransferase 55 U/L (0-33); Albumin Level 4.1 g/dL (3.5-5.2); Alkaline Phosphatase 244 U/L (35-105); Anion Gap 13.9 (5-19); Aspartate Amino Transferase 62 U/L (0-32); Blood Urea Nitrogen 17 mg/dL (6-20); Calcium 9.8 mg/dL (8.5-10.5); Carbon Dioxide 26 mmol/L (22-29); Chloride 102 mmol/L (98-107); Creatinine Clr Calc Pharmacy 123.9835; Follicle Stimulating Hormone 105.7 mIU/mL; Globulin 3.2 g/dL (1.3-4.6); Glomerular Filtration Rate 132.8 mL/min (90-130); Glucose 104 mg/dL (65-115); Magnesium 1.7 mg/dL (1.7-2.3); Osmolality Calculated 288 mOsm/kg (285-295); Potassium 3.9 mmol/L (3.5-5.1); Prostate Specific Antigen < 0.014 ng/mL; Sodium 138 mmol/L (136-145); Thyroid Stimulating Hormone 1.92 uIU/mL (0.27-4.20); Total Bilirubin 0.4 mg/dL (0.15-1.2); Total Protein 7.3 g/dL (6.6-8.7)
[2024-07-21] MEDS: sodium chloride 0.9% 250 ML 70 ML IV (09:58)
[2024-07-21] MEDS: acetaminophen 325 mg Tablet 650 MG PO (10:02)
[2024-07-21] MEDS: OLANZapine 5 mg TABLET PO (10:03)
[2024-07-21] MEDS: famotidine 20 mg/2 mL INJ IVP (10:03)
[2024-07-21] MEDS: dexamethasone 4 mg/mL INJ 5 mL 12 MG IV (10:05)
[2024-07-21] MEDS: ondansetron 2 mg/ML SDV 2 mL 8 MG IVP (10:07)
[2024-07-21] MEDS: diphenhydrAMINE 50 mg/mL SDV 1mL 25 MG IVP (10:08)
[2024-07-21] MEDS: aprepitant 130 mg/18 ml SDV IVP (10:09)
[2024-07-21] MEDS: atezolizumab 1,200 MG in sodium chloride 0.9% 250 ML 550 MG IV (10:33)
[2024-07-21] MEDS: CARBOPLATIN IV (11:23)
[2024-07-21] MEDS: SODIUM CHLORIDE 0.9% IV (11:23)
[2024-07-21] MEDS: [UNRECOGNIZED DRUG - REMARK] 508 MG IV (12:40)
[2024-07-21] MEDS: pegfilgrastim 6 mg/0.6 mL Kit (onpro) SUBCUT (13:53)
[2024-07-21 14:00] VITALS: BP 94/58; PULSE 104; RESP 16; TEMP 36.4; O2SAT 96
[2024-07-22 08:28] VITALS: BP 105/71; PULSE 98; TEMP 36.7; O2SAT 95
[2024-07-22] MEDS: sodium chloride 0.9% 250 ML 75 ML IV (08:42)
[2024-07-22] MEDS: ondansetron 2 mg/ML SDV 2 mL 8 MG IVP (08:43)
[2024-07-22] MEDS: [UNRECOGNIZED DRUG - REMARK] 508 MG IV (09:14)
[2024-07-22 10:26] VITALS: BP 102/67; PULSE 96; RESP 16; TEMP 36.9; O2SAT 96
[2024-07-23] MEDS: sodium chloride 0.9% 250 ML 75 ML IV (08:47)
[2024-07-23] MEDS: palonosetron 0.25 mg/5 mL SDV IVP (08:50)
[2024-07-23] MEDS: [UNRECOGNIZED DRUG - REMARK] 508 MG IV (09:52)
[2024-07-23 11:16] VITALS: BP 99/66; PULSE 94; RESP 16; TEMP 36.4; O2SAT 97
== END 2024-07-23 23:59 | disposition home or self-care (01) ==
PROVIDERS: Nurse Practitioner; PCP Family Medicine; Visit Provider Internal Medicine Medical Oncology
DX: Z53.9 Procedure and treatment not carried out, unspecified reason; Z51.11 Encounter for antineoplastic chemotherapy; C34.31 Malignant neoplasm of lower lobe, right bronchus or lung; Z79.634 Long term (current) use of topoisomerase inhibitor; Z95.828 Presence of other vascular implants and grafts
CPT/HCPCS: 80053; 82670; 83001; 83002; 83735; 84153; 84443; 85025; 96372; 96375; 96413; 96417; J0185; J1100; J1200; J2405; J2469; J2506; J3490; J7030; J7040; J7050; J9022; J9045; J9181

== ENCOUNTER 2024-07-28 08:51 | Outpatient (RCR) | payer OTHER, MEDICAID, SELFPAY | END 2024-08-15 23:59 | disposition home or self-care (01) | LOC: SPT 08:51 | PROVIDERS: PCP Family Medicine; Visit Provider Student in an Organized Health Care Education/Training Program | DX: I69.851 Hemiplegia and hemiparesis following other cerebrovascular disease affecting right dominant side (principal) | CPT/HCPCS: 97161 ==

== ENCOUNTER 2024-07-28 08:59 | Outpatient (RCR) | payer OTHER, MEDICAID, SELFPAY | END 2024-08-15 23:59 | disposition home or self-care (01) | LOC: SOT 08:59 | PROVIDERS: PCP Family Medicine; Visit Provider Student in an Organized Health Care Education/Training Program | DX: M62.81 Muscle weakness (generalized) (principal) | CPT/HCPCS: 97166 ==

== ENCOUNTER 2024-07-29 08:07 | Oncology outpatient (recurring) (ONCR) | payer OTHER, MEDICAID, SELFPAY ==
[2024-07-29 08:25] LABS: Basophils % 0.8 %; Eosinophils # 0.1 10^3/uL (0.0-0.8); Eosinophils % 2.2 %; Hematocrit 32.4 % (36-47); Lymphocytes # 1.2 10^3/uL (0.8-4.8); Lymphocytes % 32.1 %; Mean Corpuscular HGB Conc 31.2 g/dL (30-55); Mean Corpuscular Hemoglobin 31.8 pg (27-33); Mean Corpuscular Volume 101.9 fl (85-98); Mean Platelet Volume 10.6 fL (7.4-10.4); Monocytes # 0.1 10^3/uL (0.2-0.9); Monocytes % 1.6 %; Nucleated Red Blood Cells % 0 %; Platelet Count 152 10^3/cmm (157-399); Red Blood Count 3.18 10^6/uL (3.85-5.65); Red Cell Distribution Width 16.2 % (12.1-15.1); White Blood Count 3.71 10^3/uL (3.29-11.43)
[2024-07-29 08:46] LABS: Alanine Aminotransferase 195 U/L (0-33); Albumin Level 4.2 g/dL (3.5-5.2); Alkaline Phosphatase 329 U/L (35-105); Anion Gap 14.8 (5-19); Aspartate Amino Transferase 122 U/L (0-32); Blood Urea Nitrogen 22 mg/dL (6-20); Calcium 9.6 mg/dL (8.5-10.5); Carbon Dioxide 27 mmol/L (22-29); Chloride 102 mmol/L (98-107); Glomerular Filtration Rate 132.8 mL/min (90-130); Glucose 112 mg/dL (65-115); Osmolality Calculated 294 mOsm/kg (285-295); Potassium 3.8 mmol/L (3.5-5.1); Sodium 140 mmol/L (136-145); Total Bilirubin 0.9 mg/dL (0.15-1.2); Total Protein 7.2 g/dL (6.6-8.7)
== END 2024-08-15 23:59 | disposition home or self-care (01) ==
PROVIDERS: PCP Family Medicine; Visit Provider Internal Medicine Medical Oncology
DX: C34.90 Malignant neoplasm of unspecified part of unspecified bronchus or lung (principal)
CPT/HCPCS: 36591; 80053; 85025